=== PATIENT | male | born 1955 | race Caucasian/White ===

== ENCOUNTER 2018-04-07 19:55 | Inpatient (IN) | payer MEDICARE ==
[2018-04-07] MEDS ORDERED: Metoprolol Tartrate 5 MG/5 ML VIAL ONE (20:10)
[2018-04-07] MEDS ORDERED: Nitroglycerin 2% Ointment 1 INCH/1 GM Packet ONE (20:10)
[2018-04-07 21:27] LABS: Troponin I 2.863 ng/mL (< 0.028)
[2018-04-07] MEDS ORDERED: Enoxaparin Sodium 120 MG/0.8 ML SYRINGE SC SCH (23:00)
[2018-04-07] MEDS ORDERED: Nitroglycerin 0.4 MG TAB (25 Tab Bottle) SL PRN ×2 (23:34→23:36)
[2018-04-07] MEDS ORDERED: Acetaminophen 325 MG TAB PO PRN (23:37)
[2018-04-07] MEDS ORDERED: Ondansetron ODT 4 MG TAB PO PRN (23:37)
[2018-04-07] MEDS ORDERED: Atorvastatin Calcium 20 MG TAB PO SCH (23:45)
[2018-04-07] MEDS ORDERED: Metoprolol Tartrate 25 MG TAB PO SCH (23:45)
[2018-04-08 00:19] LABS: Troponin I 2.911 ng/mL (< 0.028)
[2018-04-08 05:11] LABS: #Basophils 0.1 thou/uL (0.0-0.2); #Eosinphils 0.2 thou/uL (0.0-0.7); #Lymphocytes 2.8 thou/uL (1.20-3.40); #Monocytes 1.1 thou/uL (0.11-0.59); #Neutrophils 8.5 thou/uL (1.40-6.50); %Basophils 0.4 % (0.0-1.0); %Eosinophils 1.8 % (0.0-10.0); %Monocytes 8.7 % (0.0-10.0); %Neutrophils 67.1 % (42.0-75.0); Hemoglobin 14.3 g/dL (14.0-18.0); Mean Corpuscular HGB CONC 33.5 g/dL (32.0-36.0); Mean Corpuscular Hemoglobin 29.7 pg (27.0-31.0); Mean Corpuscular Volume 88.4 fL (78.0-98.0); Mean Platelet Volume 9.3 fL (7.4-10.4); Platelet Count 220 thou/uL (130-400); RBC Distribution Width 12.5 % (11.5-14.5); Red Blood Cell (RBC) Count 4.84 mill/uL (4.70-6.10); White Blood Cell (WBC) Count 12.7 thou/uL (4.8-10.8)
[2018-04-08 05:27] LABS: Anion Gap 13 mmol/L (10-20); BUN (Urea Nitrogen) 10 mg/dL (8.4-25.7); Calc. Creatinine Clearance 122 mL/min (70-130); Calcium 9.1 mg/dL (7.8-10.44); Carbon Dioxide 26 mmol/L (23-31); Chloride 103 mmol/L (98-107); Estimated GFR-MDRD 71; Glucose 182 mg/dL (80-115); Potassium 3.7 mmol/L (3.5-5.1); Sodium 138 mmol/L (136-145)
[2018-04-08] MEDS ORDERED: Aspirin 325 MG TAB PO SCH (09:00)
[2018-04-08] MEDS ORDERED: Metoprolol Tartrate 25 MG TAB PO SCH (09:00)
[2018-04-08] MEDS ORDERED: Enoxaparin Sodium 120 MG/0.8 ML SYRINGE SC SCH (09:00)
[2018-04-08] MEDS: Aspirin 325 MG TAB PO SCH (09:39)
[2018-04-08] MEDS: Lisinopril 2.5 MG TAB PO SCH (09:40)
[2018-04-08] MEDS: Enoxaparin Sodium 40 MG/0.4 ML SYRINGE SC SCH (09:40)
[2018-04-08] MEDS: Clopidogrel Bisulfate 75 MG TAB PO SCH (09:40)
[2018-04-08] MEDS: Metoprolol Tartrate 25 MG TAB PO SCH ×2 (09:41→20:24)
[2018-04-08 10:21] LABS: Troponin I 1.881 ng/mL (< 0.028)
--- NOTE | 2018-04-08 13:44 | CON ---
DATE OF CONSULTATION: 04/08/2018 REASON FOR CONSULTATION: Chest pain, elevated troponin. HISTORY OF PRESENT ILLNESS: Mr. Escalera is a very pleasant 62-year-old gentleman who has been seen and evaluated by a tire finisher in [place]. He recently presented with chest pain. He states he had severe pain lasting for up to 15 minutes. He describes it as severe heartburn. It then slowly reso lved. This occurred yesterday. He has not had any recurrent episode. Given the intensity of the pa in, he proceeded to the emergency room. His troponin was elevated and was subsequently admitted. From a CV standpoint, he has a history of previous stent placement in 07/2008. He states he has had 4 total stents. PAST MEDICAL HISTORY: Hyperlipidemia, CVA/TIA, CAD. ALLERGIES: PENICILLIN. HOME MEDICATIONS: Plavix, aspirin, lisinopril, atorvastatin, amlodipine and Protonix. REVIEW OF SYSTEMS: A 10-point review of systems was reviewed and as above, otherwise negative. PHYSICAL EXAMINATION: GENERAL: Patient is a pleasant male who is in no acute distress. The patient appears his stated age . VITAL SIGNS: Blood pressure 139/88, pulse 73, temperature 97.5. NEUROLOGIC: The patient is alert and oriented times 3 with no focal neurologic deficits. HEENT: Sclerae without icterus. Mouth has moist mucous membranes with normal pallor. NECK: No JVD. Carotid upstroke brisk. No bruits bilaterally. LUNGS: Clear to auscultation with unlabored respirations. BACK: No scoliosis or kyphosis. CARDIAC: Regular rate and rhythm with normal S1 and S2. No S3 or S4 noted. No significant rubs, mu rmurs, thrills, or gallops noted throughout the precordium. PMI is not displaced. There is no rony ternal heave. ABDOMEN: Soft, nontender, nondistended. No peritoneal signs present. No hepatosplenomegaly. No ab normal striae. EXTREMITIES: 2+ femoral and 2+ dorsalis pedis pulses. No cyanosis, clubbing, or edema. SKIN: No gross abnormalities. PERTINENT LABS: Hemoglobin 14.3. Peak troponin 2.9, down to 1.8. IMAGING: EKG, normal sinus rhythm with Q-waves noted inferiorly. IMPRESSION: Unstable angina. RECOMMENDATIONS: Mr. Escalera's symptoms certainly suggest unstable angina. His troponin is elevate d. His EKG is nonspecific. At this point, I recommend coronary angiography plus PCI. I discussed t he procedure in full detail with Mr. Escalera. The risks included but are not limited to the followi ng: , stroke, OR, need for emergency surgery, loss of limb, bleeding, and infection, as well as a reaction to the dye causing kidney failure and needing long-term dialysis. I also discussed the r isks of PCI to include all of the above including coronary dissection and perforation in addition to acute stent thrombosis and restenosis. All questions about the procedure were answered. Given the a georgette, the patient agreed to proceed with coronary angiography and possible PCI. I also discussed karlie g-coated versus nondrug coated stent placement. There are no contraindications and we will proceed i f needed. Further recommendations pending the above.
--- NOTE | 2018-04-08 14:25 | PDOC.PN ---
- Subjective Encounter Start Date: 04/08/18 Encounter Start Time: 10:20 Pt seen for followup re: NSTEMI. Reports burning sensation in chest, now better. - Objective Resuscitation Status: Resuscitation Status FULL:Full Resuscitation Vital Signs & Weight: Vital Signs (12 hours) Temp Pulse Resp BP Pulse Ox 04/08/18 11:54 97.5 F L 73 17 139/88 96 04/08/18 09:40 85 04/08/18 09:36 97.7 F 85 14 169/94 H 99 04/08/18 04:00 97.7 F 81 18 131/81 97 Weight Weight 262 lb 6.4 oz I&O: 04/07/18 04/08/18 04/09/18 06:59 06:59 06:59 Intake Total 240 Output Total 375 Balance -135 Result Diagrams: 04/08/18 04:33 04/08/18 04:33 Phys Exam - Physical Examination Obese HEENT: moist MMs, sclera anicteric, oral pharynx no lesions, 2+ tonsils Neck: no nodes, no JVD, supple, full ROM Respiratory: no wheezing, no rales, no rhonchi, clear to auscultation bilateral Cardiovascular: RRR, no rub S1, s2 Gastrointestinal: soft, non-tender, no distention, positive bowel sounds Neurological: moves all 4 limbs Psychiatric: normal affect, A&O x 3 Dx/Plan (1) NSTEMI (non-ST elevated myocardial infarction) Code(s): I21.4 - NON-ST ELEVATION (NSTEMI) MYOCARDIAL INFARCTION Status: Acute Comment: monitor on telemetry, continue aspirin. (2) H/O: stroke Code(s): Z86.73 - PRSNL HX OF TIA (TIA), AND CEREB INFRC W/O RESID DEFICITS Status: Chronic Comment: stable (3) HTN (hypertension) Code(s): I10 - ESSENTIAL (PRIMARY) HYPERTENSION Status: Chronic Comment: controlled (4) Dyslipidemia Code(s): E78.5 - HYPERLIPIDEMIA, UNSPECIFIED Status: Chronic Comment: continue statin (5) Hyperglycemia Code(s): R73.9 - HYPERGLYCEMIA, UNSPECIFIED Status: Chronic Comment: check HbA1c. - Plan * . Review of Systems - Review of Systems Constitutional: negative: fever, chills, sweats, weakness, malaise Respiratory: negative: Cough, Shortness of Breath, SOB with Excertion, Pleuritic Pain, Wheezing Cardiovascular: chest pain. negative: palpitations, orthopnea, paroxysmal nocturnal dyspnea, edema, light headedness Gastrointestinal: negative: Nausea, Vomiting, Abdominal Pain, Diarrhea, Constipation, Melena, Hematochezia Genitourinary: negative: Dysuria, Frequency, Incontinence, Hematuria, Retention Skin: negative: Rash, Lesions, Dom, Bruising - Medications/Allergies Allergies/Adverse Reactions: Allergies Allergy/AdvReac Type Severity Reaction Status Date / Time Penicillins Allergy Verified 04/07/18 23:33 Medications: Current Medications Acetaminophen (Tylenol) 650 mg PO Q4H PRN PRN Reason: Headache/Fever or Pain Aspirin (Aspirin) 325 mg PO DAILY [facility] Last Admin: 04/08/18 09:39 Dose: 325 mg Atorvastatin Calcium (Lipitor) 20 mg PO HS [facility] Clopidogrel Bisulfate (Plavix) 75 mg PO DAILY [facility] Last Admin: 04/08/18 09:40 Dose: 75 mg Enoxaparin Sodium (Lovenox) 40 mg SC 0900 [facility] Last Admin: 04/08/18 09:40 Dose: 40 mg Lisinopril (Zestril) 2.5 mg PO DAILY [facility] Last Admin: 04/08/18 09:40 Dose: 2.5 mg Metoprolol Tartrate (Lopressor) 12.5 mg PO BID [facility] Last Admin: 04/08/18 09:41 Dose: 12.5 mg Nitroglycerin (Nitrostat) 0.4 mg SL Q5MIN PRN PRN Reason: Chest Pain Ondansetron HCl (Zofran Odt) 4 mg PO Q6H PRN PRN Reason: Nausea/Vomiting Pantoprazole Sodium (Protonix) 40 mg PO DAILY [facility] Last Admin: 04/08/18 09:42 Dose: 40 mg Pantoprazole Sodium (Protonix) 40 mg PO DAILY [facility] Last Admin: 04/08/18 09:44 Dose: Not Given Sodium Chloride (Flush - Normal Saline) 10 ml IVF PRN PRN PRN Reason: Saline Flush
[2018-04-08 14:46] LABS: Hemoglobin A1c 8.3 % (4.0-6.0)
[2018-04-08] MEDS: Atorvastatin Calcium 20 MG TAB PO SCH (20:24)
[2018-04-08] MEDS ORDERED: Simvastatin 40 MG TAB PO SCH (21:00)
[2018-04-09 04:58] LABS: #Basophils 0.1 thou/uL (0.0-0.2); #Eosinphils 0.2 thou/uL (0.0-0.7); #Lymphocytes 2.8 thou/uL (1.20-3.40); #Neutrophils 7.2 thou/uL (1.40-6.50); %Basophils 0.5 % (0.0-1.0); %Eosinophils 1.7 % (0.0-10.0); %Lymphocytes 25.1 % (21.0-51.0); %Monocytes 8.8 % (0.0-10.0); %Neutrophils 63.9 % (42.0-75.0); Hemoglobin 14.5 g/dL (14.0-18.0); Mean Corpuscular Hemoglobin 29.8 pg (27.0-31.0); Mean Corpuscular Volume 87.7 fL (78.0-98.0); Mean Platelet Volume 8.9 fL (7.4-10.4); Platelet Count 227 thou/uL (130-400); RBC Distribution Width 12.4 % (11.5-14.5); Red Blood Cell (RBC) Count 4.84 mill/uL (4.70-6.10); White Blood Cell (WBC) Count 11.3 thou/uL (4.8-10.8)
[2018-04-09 05:23] LABS: Anion Gap 13 mmol/L (10-20); BUN (Urea Nitrogen) 12 mg/dL (8.4-25.7); Calc. Creatinine Clearance 122 mL/min (70-130); Calcium 8.7 mg/dL (7.8-10.44); Carbon Dioxide 23 mmol/L (23-31); Chloride 104 mmol/L (98-107); Estimated GFR-MDRD 71; Glucose 185 mg/dL (80-115); Potassium 3.7 mmol/L (3.5-5.1); Sodium 136 mmol/L (136-145)
[2018-04-09] MEDS: Aspirin 325 MG TAB PO SCH (08:36)
[2018-04-09] MEDS: Clopidogrel Bisulfate 75 MG TAB PO SCH (08:36)
[2018-04-09] MEDS: Enoxaparin Sodium 40 MG/0.4 ML SYRINGE SC SCH (08:36)
[2018-04-09] MEDS: Lisinopril 2.5 MG TAB PO SCH (08:37)
[2018-04-09] MEDS: Metoprolol Tartrate 25 MG TAB PO SCH ×2 (08:37→20:15)
--- NOTE | 2018-04-09 09:51 | PDOC.PN ---
- Subjective Encounter Start Date: 04/09/18 Encounter Start Time: 07:20 Pt seen for followup re: NSTEMI. Denies chest pain, shortness of breath, fevers or chills. - Objective Resuscitation Status: Resuscitation Status FULL:Full Resuscitation MAR Reviewed: Yes Vital Signs & Weight: Vital Signs (12 hours) Temp Pulse Resp BP Pulse Ox 04/09/18 08:32 98.4 F 85 16 136/83 96 04/09/18 04:00 98.5 F 73 18 119/70 94 L Weight Weight 260 lb 12.8 oz I&O: 04/08/18 04/09/18 04/10/18 06:59 06:59 06:59 Intake Total 240 1440 Output Total 375 1150 Balance -135 290 Result Diagrams: 04/09/18 04:27 04/09/18 04:27 EKG Reviewed by me: Yes (Tele: NSR) Phys Exam - Physical Examination Obese HEENT: moist MMs, sclera anicteric, oral pharynx no lesions, 2+ tonsils Neck: no nodes, no JVD, supple, full ROM Respiratory: no wheezing, no rales, no rhonchi, clear to auscultation bilateral Cardiovascular: RRR, no rub S1, s2 Gastrointestinal: soft, non-tender, no distention, positive bowel sounds Musculoskeletal: no edema Neurological: moves all 4 limbs Lymphatic: no nodes Psychiatric: normal affect Dx/Plan (1) NSTEMI (non-ST elevated myocardial infarction) Code(s): I21.4 - NON-ST ELEVATION (NSTEMI) MYOCARDIAL INFARCTION Status: Acute Comment: for cath tomorrow, continue aspirin and Plavix (2) H/O: stroke Code(s): Z86.73 - PRSNL HX OF TIA (TIA), AND CEREB INFRC W/O RESID DEFICITS Status: Chronic Comment: stable (3) HTN (hypertension) Code(s): I10 - ESSENTIAL (PRIMARY) HYPERTENSION Status: Chronic Comment: controlled and at goal (4) Dyslipidemia Code(s): E78.5 - HYPERLIPIDEMIA, UNSPECIFIED Status: Chronic Comment: on statin (5) Hyperglycemia Code(s): R73.9 - HYPERGLYCEMIA, UNSPECIFIED Status: Chronic Comment: HbA1c 8.3, start accuchecks and insulin sliding scale while in hospital - Plan * . Review of Systems - Review of Systems Constitutional: negative: fever, chills, sweats, weakness, malaise Respiratory: negative: Cough, Shortness of Breath, SOB with Excertion, Pleuritic Pain, Wheezing Cardiovascular: negative: chest pain, palpitations, orthopnea, paroxysmal nocturnal dyspnea, edema, light headedness Gastrointestinal: negative: Nausea, Vomiting, Abdominal Pain, Diarrhea, Constipation, Melena, Hematochezia Genitourinary: negative: Dysuria, Frequency, Incontinence, Hematuria, Retention Neurological: negative: Weakness, Numbness, Incoordination, Change in Speech, Confusion, Seizures - Medications/Allergies Allergies/Adverse Reactions: Allergies Allergy/AdvReac Type Severity Reaction Status Date / Time Penicillins Allergy Verified 04/07/18 23:33 Medications: Current Medications Acetaminophen (Tylenol) 650 mg PO Q4H PRN PRN Reason: Headache/Fever or Pain Aspirin (Aspirin) 325 mg PO DAILY [facility] Last Admin: 04/09/18 08:36 Dose: 325 mg Atorvastatin Calcium (Lipitor) 20 mg PO HS [facility] Last Admin: 04/08/18 20:24 Dose: 20 mg Clopidogrel Bisulfate (Plavix) 75 mg PO DAILY [facility] Last Admin: 04/09/18 08:36 Dose: 75 mg Enoxaparin Sodium (Lovenox) 40 mg SC 0900 [facility] Last Admin: 04/09/18 08:36 Dose: 40 mg Lisinopril (Zestril) 2.5 mg PO DAILY [facility] Last Admin: 04/09/18 08:37 Dose: 2.5 mg Metoprolol Tartrate (Lopressor) 12.5 mg PO BID [facility] Last Admin: 04/09/18 08:37 Dose: 12.5 mg Nitroglycerin (Nitrostat) 0.4 mg SL Q5MIN PRN PRN Reason: Chest Pain Ondansetron HCl (Zofran Odt) 4 mg PO Q6H PRN PRN Reason: Nausea/Vomiting Pantoprazole Sodium (Protonix) 40 mg PO DAILY [facility] Last Admin: 04/09/18 08:38 Dose: 40 mg Pantoprazole Sodium (Protonix) 40 mg PO DAILY [facility] Last Admin: 04/09/18 08:38 Dose: Not Given Sodium Chloride (Flush - Normal Saline) 10 ml IVF PRN PRN PRN Reason: Saline Flush Last Admin: 04/09/18 08:38 Dose: 10 ml
[2018-04-09] MEDS ORDERED: HumaLOG 300 UNITS/3 ML VIAL SC PRN (09:53)
[2018-04-09] MEDS ORDERED: Dextrose 5% in Water 1,000 ML IV PRN (09:53)
[2018-04-09] MEDS ORDERED: Dextrose 50% Abboject 50 ML SYRINGE SLOW IVP PRN (09:53)
[2018-04-09] MEDS ORDERED: Communication Order-Pharmacy FS SCH (10:45)
--- NOTE | 2018-04-09 12:18 | PDOC.CTH ---
Cardiology Progress Note - Subjective No complaints. No CP/SOB overnight or with ambulation. - Objective Vital Signs Temp Pulse Resp BP Pulse Ox 04/09/18 11:16 97.5 F L 71 14 130/85 95 04/09/18 08:32 97.5 F L 71 14 136/83 96 04/09/18 04:00 98.5 F 73 18 119/70 94 L Weight 260 lb 12.8 oz 04/08/18 04/09/18 04/10/18 06:59 06:59 06:59 Intake Total 240 1440 Output Total 375 1150 Balance -135 290 - Physical Examination General/Neuro: alert & oriented x3 Neck: no JVD present Lungs: CTA Heart: RRR Abdomen: NT/ND Extremities: other: (no edema) - Telemetry Telemetry Rhythm: SR - Labs Result Diagrams: 04/09/18 04:27 04/09/18 04:27 Troponin/CKMB Troponin I 1.881 ng/mL (< 0.028) H* 04/08/18 09:24 - Assessment/Plan 1. NSTEMI 2. HTN 3. HLD 4. Uncontrolled DM-II 5. History of CVA Plan for cath in AM. Answered questions regarding procedure. Already consented by Dr. Lino
--- NOTE | 2018-04-09 19:03 | HP ---
PRIMARY CARE DOCTOR: [facility] Call CODE STATUS: FULL CODE. TIME OF EVALUATION: 9:40 p.m. CHIEF COMPLAINT: Chest pain. HISTORY OF PRESENT ILLNESS: This is a 62-year-old male patient with past medical history of stroke, ulnar neuropathy, NM in 2007, hypertension who came to the hospital after having chest pain, it was i n the middle of the chest, he described it as a heartburn stomach, he reported as severe, there are no clear triggers, no alleviating factors. Chest pain is being going on since yesterday, the pa henry the troponin was 3.2. He presented almost 24 hours after this incident, and reported rec ent transfer to our hospital. REVIEW OF SYSTEMS: Constitutional: No fever, no chills, or generalized weakness. Respiratory: No cough, sputum production, or shortness of breath. Cardiovascular: No chest pain, no shortness of br eath. Gastrointestinal: No nausea, vomiting, diarrhea, or abdominal pain. 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 Genitourinary: No burning with urination. Extremities: No leg swell ing. All other systems were reviewed and negative except for the findings mentioned above. PAST MEDICAL HISTORY: As mentioned in the HPI. PAST SURGICAL HISTORY: The patient has history of stent x4 and knee surgery. PSYCHIATRIC HISTORY: No previous psychiatric history. SOCIAL HISTORY: Former tobacco smoker, smoked cigarettes, quit smoking less than 30 years ago. ALLERGIES: PENICILLIN. REPORTED MEDICATIONS: Lisinopril 10 mg daily, metoprolol 25 mg unknown dose, aspirin 81 daily, clopi dogrel 75 mg daily, atorvastatin 10 mg daily. PHYSICAL EXAMINATION: VITAL SIGNS: On presentation, blood pressure 153/102 with heart rate 100, respiratory rate was 18, p ain was 0/10, O2 saturation of 96 on 2 L oxygen. GENERAL APPEARANCE: The patient is alert and oriented, in no acute distress. HEAD AND EYES: Normal conjunctivae. Moist oral mucosa. Anicteric. NECK: No JVD. RESPIRATORY: Bilateral air entry. No rales, no wheezing. Symmetric expansion. CARDIOVASCULAR: Normal rate, regular rhythm. No murmurs, no gallop. No edema. ABDOMEN: Soft. The patient is obese. Normal bowel sounds. MUSCULOSKELETAL: Baseline range of motion and strength. No tenderness. SKIN: Warm and intact. No pallor, no rash, no redness. Peripheral pulses are present. Capillary r efill seems to be intact. NEUROLOGIC: Baseline sensory. No evidence of any new focal weakness. Baseline speech. Cranial ner ve seems to be intact. PSYCHIATRIC: Good mood. No anxiety, oriented, optimal judgment. IMAGING: EKG was reviewed. The patient has sinus rhythm with occasional PVCs, ventricular rate 88, NE 152, QRS 92, QT corrected 447. No acute ischemia was seen in the EKG. LABORATORY DATA: Reviewed. The patient had initial troponin of 2.8, second troponin 2.9. Rest of l abs are pending. ASSESSMENT AND PLAN: The patient will be placed in the hospital for the following medical problems: 1. Non-ST segment elevation myocardial infarction. The patient has elevation in troponin of around 3, likely that was the reason for the chest pain 24 hours ago when the patient was at home. We start ed the patient on aspirin and Lovenox, GARCIA inhibitors, beta blockers, nitroglycerin, simvastatin, ___ __ Plavix. Cardiology consulted for further management in a.m. 2. Morbid obesity. The patient advised to lose weight. 3. Uncontrolled hypertension with systolic blood pressure 153, diastolic 102, reconciled home medica tions, adjust treatment as needed. 4. Medical noncompliance. The patient has been advised to be compliant, he reported having some fin ancial issues. He will be switching back to . 5. Deep venous thrombosis prophylaxis. The patient is on Lovenox.
[2018-04-09] MEDS: Atorvastatin Calcium 20 MG TAB PO SCH (20:15)
[2018-04-10 05:03] LABS: #Basophils 0.1 thou/uL (0.0-0.2); #Eosinphils 0.2 thou/uL (0.0-0.7); #Monocytes 0.9 thou/uL (0.11-0.59); #Neutrophils 6.1 thou/uL (1.40-6.50); %Basophils 0.6 % (0.0-1.0); %Eosinophils 2.2 % (0.0-10.0); %Lymphocytes 29.2 % (21.0-51.0); %Monocytes 8.4 % (0.0-10.0); %Neutrophils 59.7 % (42.0-75.0); Mean Corpuscular HGB CONC 34.6 g/dL (32.0-36.0); Mean Corpuscular Hemoglobin 30.3 pg (27.0-31.0); Mean Corpuscular Volume 87.7 fL (78.0-98.0); Mean Platelet Volume 9.5 fL (7.4-10.4); Platelet Count 217 thou/uL (130-400); RBC Distribution Width 12.4 % (11.5-14.5); Red Blood Cell (RBC) Count 4.94 mill/uL (4.70-6.10); White Blood Cell (WBC) Count 10.1 thou/uL (4.8-10.8)
[2018-04-10 05:25] LABS: Anion Gap 13 mmol/L (10-20); BUN (Urea Nitrogen) 12 mg/dL (8.4-25.7); Calc. Creatinine Clearance 118 mL/min (70-130); Calcium 9.2 mg/dL (7.8-10.44); Carbon Dioxide 25 mmol/L (23-31); Chloride 104 mmol/L (98-107); Estimated GFR-MDRD 69; Glucose 172 mg/dL (80-115); Potassium 3.8 mmol/L (3.5-5.1); Sodium 138 mmol/L (136-145)
[2018-04-10] MEDS ORDERED: Sodium Chloride 0.9% 1,000 ML IV SCH ×2 (06:00→10:15)
[2018-04-10] MEDS ORDERED: Lidocaine 1% (PF) 30 ML VIAL ONE (08:10)
[2018-04-10] MEDS: Metoprolol Tartrate 25 MG TAB PO SCH ×2 (08:30→20:25)
[2018-04-10] MEDS: Lisinopril 2.5 MG TAB PO SCH (08:30)
[2018-04-10] MEDS ORDERED: Iopamidol 370 76% 100 ML VIAL ONE (09:14)
[2018-04-10] MEDS ORDERED: Midazolam HCl 2 mg/2 ml Vial ONE (09:46)
[2018-04-10] MEDS ORDERED: Fentanyl 100 MCG/2 ML VIAL ONE (10:04)
[2018-04-10] MEDS ORDERED: traMADol HCl 50 MG TAB PO PRN (10:05)
[2018-04-10] MEDS ORDERED: Acetaminophen/Codeine 30-300mg Tablet PO PRN ×2 (10:05)
[2018-04-10] MEDS ORDERED: Nitroglycerin 0.4 MG TAB (25 Tab Bottle) SL PRN (10:05)
[2018-04-10] MEDS ORDERED: Sodium Chloride 0.9% 200 ML IV PRN (10:15)
[2018-04-10] MEDS: Aspirin 325 MG TAB PO SCH (10:41)
[2018-04-10] MEDS ORDERED: Communication Order-Pharmacy FS SCH (11:47)
--- NOTE | 2018-04-10 12:47 | CON ---
DATE OF CONSULTATION: 04/10/2018 REQUESTING PHYSICIAN: Gaston Calderon M.D. CHIEF COMPLAINT: Heartburn. HISTORY OF PRESENT ILLNESS: The patient is a 62-year-old diabetic man who about 10 years ago underwe nt coronary stenting. From a cardiac standpoint, he had done well until the last week or two when he began developing what he thought was simply heartburn. It was relieved with antacids and warm Coca Cola, but he presented to the hospital when he had a much more severe episode. He did not have any o bviously acute EKG changes, but his initial troponin was elevated and it kezia and fell consistent wit h a non-ST elevation myocardial infarction. He has not had any recurrent such discomfort since his a dmission. Cardiac catheterization this morning demonstrates severe three-vessel coronary disease wit h preserved left ventricular systolic function. PAST MEDICAL HISTORY: Significant for his coronary disease and about 5 years ago, he had a cerebrova scular accident that he said was manifesting his left body weakness and dysarthria and he says that sofia dyson still has some residual mild left-sided weakness and some mild dysarthria is still evident. MEDICATIONS: His nominal home medications are aspirin, Plavix, lisinopril, atorvastatin, Norvasc and Protonix, but he ran out of his medications about 2 or 3 weeks ago. ALLERGIES: PENICILLIN, which causes large welts. FAMILY HISTORY: Significant for coronary disease in his mother who underwent coronary bypass surgery about 2 years ago and a younger brother who has undergone coronary bypass surgery. SOCIAL HISTORY: The patient has a distant history of smoking. REVIEW OF SYSTEMS: Negative for any recurrent eye, speech, facial or extremity symptoms consistent w ith transient ischemic attacks. Negative for any shortness of breath. Negative for any recent illne sses. He does state that he has had problems with back pain ever since he fell down when he had a st roke 5 years ago. PHYSICAL EXAMINATION: GENERAL: He is 6 feet 1 inch, weighs 260-3/4 pounds. VITAL SIGNS: His temperature is 97.4 with a T-max since admission of 98.6, his heart rates have been mostly in the 70-85 range and blood pressure in the 100-170/60-95 range, although his diastolic was around 100 on presentation in the emergency room. Currently, his heart rate is in the upper 70s and blood pressure 130/89. SKIN: He has no obvious xanthelasma. NECK: No JVD. He has a right carotid bruit. LUNGS: His chest is clear to auscultation. CARDIOVASCULAR: He has a regular rate and rhythm. ABDOMEN: Soft and nontender, without any obvious masses, organomegaly or bruits. EXTREMITIES: He has easily palpable radial, left femoral and left popliteal pulses. He has no bruit associated with his left femoral pulse. I did not examine the right femoral pulse due to his cathet erization this morning. Angiography closure of the cath site shows an intact distal external iliac, common femoral and common femoral bifurcation. Another exam described good dorsalis pedis pulses. C urrently, his feet are fairly cool with faintly palpable dorsalis pedis pulses. I was not able to ap preciate posterior tibials on either side or right popliteal pulse. Both feet are pink. NEUROLOGIC: Grossly nonfocal, although he states that he has left body weakness as a residual from h is stroke. He has no clubbing, cyanosis or edema. LABORATORY DATA: White count 12.7, hemoglobin 14.3, hematocrit 42.8, platelets 220,000. He had norm al electrolytes. Glucose was 182 and his Accu-Cheks since admission have generally been in the mid t o high 100s. BUN was 10, creatinine 0.6, calcium 9.1. Hemoglobin A1c was 8.3. His troponin on pres entation in the evening of the was 2.863, close to midnight it was 2.911 and then about 9:30 in the morning of the it was 1.881. This morning, his blood sugar was 172, BUN 12, creatinine 1.09 . I am not able to open the disk that is labeled as being the copy of a chest x-ray from the . I find no x-ray in our system here. His EKG shows some nonspecific ST-T wave changes with inferior Q 's. His cardiac catheterization shows a right dominant system with an occluded right coronary that a ppears to have been previously stented from its mid distal portion and a long area of stenting in the mid LAD. He has diffuse disease in his very proximal LAD with maximum stenosis about 50%-60% and th en just proximal to the stent a little beyond the first septal steam fitter supervisor maintenance is a very high-grade lesion that is probably on the order of about 90%. He has 2 tiny OMs that come off the proximal circumflex and it terminates with the OM3 being the only good sized vessel. That obtuse marginal itself appear s to be free of disease, but there is a long area of the circumflex proper that is diffusely diseased with an area of maximum stenosis. This is probably on the order of 70%-80%. His right coronary pro per is occluded. It is not clear if his posterolateral and posterior descending branches communicate . On some, they appear to not and others, there appears to be competitive flow in the proximal porti on of the posterolateral branch. Both can be seen filling left to right. LVEF is probably around 50 % or 60%. Aortic pressure is 150/83, LV was 177/12 with an EDP of 31. IMPRESSION AND RECOMMENDATIONS: Severe three-vessel coronary disease in a diabetic who has had a non -ST elevation myocardial infarction who has had previous multivessel stenting and now has disease maxwell t includes proximal LAD disease. He still has good preserved left ventricular function. His risk fa ctors are going to be elevated because of his diabetes and previous cerebrovascular disease, but the best long-term option I still think would be with surgical revascularization. I am going to stop his Plavix, check a carotid ultrasound and tentatively plan on coronary artery bypass grafting the day a fter tomorrow.
--- NOTE | 2018-04-10 13:28 | RAD ---
CHEST 2 VIEWS: Date: 04/10/18 HISTORY: Pain. COMPARISON: None. FINDINGS: Normal cardiac silhouette. Pulmonary vessels and hilum are normal. Costophrenic angles are clear. No consolidation or mass. No pneumothorax or osseous abnormalities. IMPRESSION: No acute cardiopulmonary process. POS: ROBERTA
--- NOTE | 2018-04-10 13:58 | ULT ---
CAROTID DOPPLER ULTRASOUND EVALUATION: History: Right carotid bruit. Prior to coronary artery bypass graft. Technique: Multiple longitudinal and transverse images of the carotid arteries obtained using a multi hertz linear array transducer. FINDINGS: Real-time, color flow, and spectral waveform doppler analysis demonstrates the right and left common carotid arteries to be patent. There is calcified and noncalcified plaques in the origin of the right and left internal carotid arteries. This results in approximately 50% bilateral ICA stenosis. The fl ow velocity in the proximal right ICA measure 157/58 cm/sec and in the left ICA measuring 189/81 cm/s ec. Correlation with CT angiography may be of use. Antegrade flow is seen in both vertebral arteries. IMPRESSION: 1. Moderate degree of approximately 60% bilateral ICA stenosis. Correlation with CT angiography recom mended. POS: ALAN
--- NOTE | 2018-04-10 14:54 | PDOC.PN ---
- Subjective Encounter Start Date: 04/10/18 Encounter Start Time: 14:52 Pt seen for followup re: NSTEMI. Denies chest pain, shortness of breath, fevers or chills. - Objective Resuscitation Status: Resuscitation Status FULL:Full Resuscitation MAR Reviewed: Yes Vital Signs & Weight: Vital Signs (12 hours) Temp Pulse Resp BP BP Pulse Ox 04/10/18 12:00 72 18 168/90 H 95 04/10/18 08:30 78 130/89 04/10/18 07:35 97.4 F L 78 16 130/89 95 04/10/18 04:00 97.8 F 75 13 154/95 H 96 Weight Weight 260 lb 12.8 oz I&O: 04/09/18 04/10/18 04/11/18 06:59 06:59 06:59 Intake Total 1440 Output Total 1150 Balance 290 Result Diagrams: 04/10/18 03:59 04/10/18 03:59 Additional Labs: Accuchecks 04/10/18 04/10/18 04/09/18 10:56 05:53 20:49 POC Glucose 170 H 150 H 171 H 04/09/18 16:59 POC Glucose 137 H EKG Reviewed by me: Yes (Tele: NSR) Phys Exam - Physical Examination Obese HEENT: moist MMs, sclera anicteric, oral pharynx no lesions, 2+ tonsils Neck: no nodes, no JVD, supple, full ROM Respiratory: no wheezing, no rales, no rhonchi, clear to auscultation bilateral Cardiovascular: RRR, no rub S1, S2 Gastrointestinal: soft, non-tender, no distention, positive bowel sounds Neurological: moves all 4 limbs Psychiatric: normal affect, A&O x 3 Dx/Plan (1) NSTEMI (non-ST elevated myocardial infarction) Code(s): I21.4 - NON-ST ELEVATION (NSTEMI) MYOCARDIAL INFARCTION Status: Acute Comment: 3-vessel CAD on cath, pt to go for CABG on (04/12), Plavis on hold (2) DM2 (diabetes mellitus, type 2) Status: Chronic Comment: HbA1c 8.3, started accuchecks and insulin sliding scale while in hospital. (3) H/O: stroke Code(s): Z86.73 - PRSNL HX OF TIA (TIA), AND CEREB INFRC W/O RESID DEFICITS Status: Chronic Comment: stable (4) HTN (hypertension) Code(s): I10 - ESSENTIAL (PRIMARY) HYPERTENSION Status: Chronic Comment: BP trending up, will add PRN IV hydralazine (5) Dyslipidemia Code(s): E78.5 - HYPERLIPIDEMIA, UNSPECIFIED Status: Chronic Comment: continue statin - Plan * . Review of Systems - Review of Systems Constitutional: negative: fever, chills, sweats, weakness, malaise, other Respiratory: negative: Cough, Dry, Shortness of Breath, SOB with Excertion, Pleuritic Pain, Wheezing Cardiovascular: negative: chest pain, palpitations, orthopnea, paroxysmal nocturnal dyspnea, edema, light headedness Gastrointestinal: negative: Nausea, Vomiting, Abdominal Pain, Diarrhea, Constipation, Melena, Hematochezia Genitourinary: negative: Dysuria, Frequency, Incontinence, Hematuria, Retention Skin: negative: Rash, Lesions, Dom, Bruising - Medications/Allergies Allergies/Adverse Reactions: Allergies Allergy/AdvReac Type Severity Reaction Status Date / Time Penicillins Allergy Verified 04/07/18 23:33 Medications: Current Medications Acetaminophen (Tylenol) 650 mg PO Q4H PRN PRN Reason: Headache/Fever Stop: 04/12/18 08:59 Acetaminophen/Codeine Phosphate (Tylenol #3) 1 tab PO Q4H PRN PRN Reason: Mild Pain (1-3) Stop: 04/12/18 08:59 Acetaminophen/Codeine Phosphate (Tylenol #3) 2 tab PO Q4H PRN PRN Reason: Moderate Pain (4-6) Stop: 04/12/18 08:59 Aspirin (Aspirin) 325 mg PO DAILY [facility] Stop: 04/12/18 08:59 Last Admin: 04/10/18 10:41 Dose: 325 mg Atorvastatin Calcium (Lipitor) 20 mg PO HS [facility] Stop: 04/12/18 08:59 Last Admin: 04/09/18 20:15 Dose: 20 mg Dextrose/Water (Dextrose 50%) 25 gm SLOW IVP PRN PRN PRN Reason: Hypoglycemia Stop: 04/12/18 08:59 Glucagon (Glucagon) 1 mg IM PRN PRN PRN Reason: Hypoglycemia Stop: 04/12/18 08:59 Dextrose/Water (D5w) 1,000 mls @ 0 mls/hr IV .Q0M PRN PRN Reason: Hypoglycemia Stop: 04/12/18 08:59 Sodium Chloride (Normal Saline 0.9%) 200 mls @ 0 mls/hr IV ONE PRN PRN Reason: Bolus PRN SBP < 90 mm Hg Stop: 04/12/18 08:59 Vancomycin HCl 1 gm/ Device 200 mls @ 200 mls/hr IVPB ONE [facility] Stop: 04/12/18 23:59 Lisinopril (Zestril) 2.5 mg PO DAILY [facility] Last Admin: 04/10/18 08:30 Dose: 2.5 mg Metoprolol Tartrate (Lopressor) 12.5 mg PO BID [facility] Last Admin: 04/10/18 08:30 Dose: 12.5 mg Miscellaneous Information (Communication Order-Pharmacy) 1 each FS ONE [facility] Stop: 04/12/18 08:59 Nitroglycerin (Nitrostat) 0.4 mg SL Q5MIN PRN PRN Reason: Chest Pain Stop: 04/12/18 08:59 Nitroglycerin (Nitrostat) 0.4 mg SL Q5MIN PRN PRN Reason: Chest Pain Stop: 04/12/18 08:59 Ondansetron HCl (Zofran Odt) 4 mg PO Q6H PRN PRN Reason: Nausea/Vomiting Stop: 04/12/18 08:59 Pantoprazole Sodium (Protonix) 40 mg PO DAILY [facility] Stop: 04/12/18 08:59 Last Admin: 04/10/18 08:30 Dose: 40 mg Sodium Chloride (Flush - Normal Saline) 10 ml IVF PRN PRN PRN Reason: Saline Flush Stop: 04/12/18 08:59 Last Admin: 04/09/18 08:38 Dose: 10 ml Tramadol HCl (Ultram) 50 mg PO Q6H PRN PRN Reason: Moderate Pain (4-6) Stop: 04/12/18 08:59
[2018-04-10] MEDS ORDERED: hydrALAZINE 20 MG/ML VIAL SLOW IVP PRN (14:56)
--- NOTE | 2018-04-10 16:42 | CT ---
CT CHEST WITHOUT CONTRAST: Date: 04/10/18 INDICATION: Possible retrocardiac lung mass. The etiology of questioned lung mass is not specified. Chest x-ray from 04/10/18 is unremarkable. FINDINGS: Lung espitia are well aerated and are clear. No evidence of infiltrate, effusion, or mass lesion. Smal l sliding diaphragmatic hernia. No evidence of mediastinal adenopathy. Images through the upper abdomen reveal numerous peripherally calcified gallstones within the gallbla dder. Visualized liver, spleen, and pancreas appear unremarkable. There is suggestion of radiopaque c ontrast in the visualized collecting structures of both kidneys. Osseous structures unremarkable. IMPRESSION: 1. No acute lung process. 2. Cholelithiasis. 3. Suggestion of radiopaque contrast in the renal collecting structures which were not completely im aged. Recommend correlation regarding recent contrast administration. 4. Small sliding diaphragmatic hernia noted. POS: ROBERTA
[2018-04-10] MEDS: Atorvastatin Calcium 20 MG TAB PO SCH (20:25)
[2018-04-11 04:45] LABS: PTT 27.3 SEC (22.9-36.1); Prothrombin Time 13.2 SEC (12.0-14.7)
[2018-04-11 04:49] LABS: Anion Gap 11 mmol/L (10-20); BUN (Urea Nitrogen) 11 mg/dL (8.4-25.7); Calc. Creatinine Clearance 127 mL/min (70-130); Calcium 8.9 mg/dL (7.8-10.44); Carbon Dioxide 25 mmol/L (23-31); Chloride 105 mmol/L (98-107); Estimated GFR-MDRD 75; Glucose 175 mg/dL (80-115); Potassium 3.8 mmol/L (3.5-5.1); Sodium 137 mmol/L (136-145)
--- NOTE | 2018-04-11 06:37 | PDOC.CTH ---
Cardiology Progress Note - Subjective No complaints - Objective Vital Signs Temp Pulse Resp BP Pulse Ox 04/11/18 04:00 97.6 F 68 16 117/75 96 04/10/18 19:15 98.1 F 83 18 153/96 H 96 Weight 260 lb 12.8 oz 04/09/18 04/10/18 04/11/18 06:59 06:59 06:59 Intake Total 1440 1330 Output Total 1150 550 Balance 290 780 - Physical Examination General/Neuro: alert & oriented x3, NAD Neck: carotid US brisk, no JVD present Lungs: CTA, unlabored respirations Heart: RRR Abdomen: no HSM, NT/ND, soft Extremities: + femoral B - Labs Result Diagrams: 04/10/18 03:59 04/11/18 03:51 Troponin/CKMB Troponin I 1.881 ng/mL (< 0.028) H* 04/08/18 09:24 - Assessment/Plan Severe CAD S/p stent PLan on cabg tomorrow on statin BB Hold plavix and continue ASA
[2018-04-11] MEDS: Metoprolol Tartrate 25 MG TAB PO SCH ×2 (09:31→20:41)
[2018-04-11] MEDS: Aspirin 325 MG TAB PO SCH (09:32)
[2018-04-11] MEDS: Lisinopril 2.5 MG TAB PO SCH (09:32)
--- NOTE | 2018-04-11 11:29 | CT ---
CT ARTERIOGRAM NECK WITH IV CONTRAST AND 3D MIP IMAGING: History: Vascular disease. TIA. Stenosis based on sonogram. FINDINGS: There is bovine origin at the great vessels at the aortic arch. Good flow into each carotid and verte bral system. At the right carotid bifurcation, there is calcification and noncalcified plaque. Focal area of high grade stenosis within the proximal ICA is estimated at 90%. Immediately distal to this is a secondary of approximately 80% stenosis. Good flow into the more distal ICA. ECA is patent. On the left, there is calcified and prominent noncalcified plaque with a short segment focus of high grade stenosis estimated at 80%. Good flow into the more distal ICA and within the ECA. IMPRESSION: Atherosclerosis with severe bilateral proximal ICA stenosis as detailed above. POS: ALAN
[2018-04-11] MEDS ORDERED: HumaLOG 300 UNITS/3 ML VIAL SC PRN ×2 (11:56)
--- NOTE | 2018-04-11 15:55 | PDOC.PN ---
- Subjective Encounter Start Date: 04/11/18 Encounter Start Time: 10:00 Patient is seen today, alert and oriented. No other concerns noted. Will continue to Monitor. Planned CABG tomorrow. - Objective Resuscitation Status: Resuscitation Status FULL:Full Resuscitation MAR Reviewed: Yes Vital Signs & Weight: Vital Signs (12 hours) Temp Pulse Resp BP BP Pulse Ox 04/11/18 11:25 61 18 114/70 96 04/11/18 09:32 77 131/83 04/11/18 07:15 98.2 F 61 18 131/83 97 04/11/18 04:00 97.6 F 68 16 117/75 96 Weight Weight 260 lb 12.8 oz I&O: 04/10/18 04/11/18 04/12/18 06:59 06:59 06:59 Intake Total 1330 Output Total 550 Balance 780 Result Diagrams: 04/10/18 03:59 04/11/18 03:51 Additional Labs: Accuchecks 04/11/18 04/11/18 04/10/18 11:07 05:10 21:00 POC Glucose 173 H 162 H 165 H Radiology Reviewed by me: Yes EKG Reviewed by me: Yes Phys Exam - Physical Examination HEENT: PERRLA, moist MMs Neck: no nodes, no JVD Respiratory: no wheezing, no rales Cardiovascular: RRR, no significant murmur Gastrointestinal: soft, non-tender Musculoskeletal: no edema, pulses present Neurological: non-focal, normal sensation Dx/Plan (1) NSTEMI (non-ST elevated myocardial infarction) Code(s): I21.4 - NON-ST ELEVATION (NSTEMI) MYOCARDIAL INFARCTION Status: Acute Comment: 3-vessel CAD on cath, pt to go for CABG on (04/12), Plavis on hold. CT chest today showed No Mass retrocardiac. (2) DM2 (diabetes mellitus, type 2) Status: Chronic Comment: HbA1c 8.3, started accuchecks and insulin sliding scale while in hospital. (3) Dyslipidemia Code(s): E78.5 - HYPERLIPIDEMIA, UNSPECIFIED Status: Chronic Comment: continue statin (4) H/O: stroke Code(s): Z86.73 - PRSNL HX OF TIA (TIA), AND CEREB INFRC W/O RESID DEFICITS Status: Chronic Comment: stable (5) HTN (hypertension) Code(s): I10 - ESSENTIAL (PRIMARY) HYPERTENSION Status: Chronic Comment: BP trending up, will add PRN IV hydralazine (6) Hyperglycemia Code(s): R73.9 - HYPERGLYCEMIA, UNSPECIFIED Status: Chronic Comment: zarina gill SSI. - Plan cont current plan of care, PT/OT, social worker aide, respiratory therapy, incentive spirometry, DVT proph w/lovenox * . Review of Systems - Review of Systems Constitutional: negative: fever, chills, sweats, weakness, malaise, other Eyes: negative: Pain, Vision Change, Conjunctivae Inflammation, Eyelid Inflammation, Redness, Other ENT: negative: Ear Pain, Ear Discharge, Nose Pain, Nose Discharge, Nose Congestion, Mouth Pain, Mouth Swelling, Throat Pain, Throat Swelling, Other Respiratory: negative: Cough, Dry, Shortness of Breath, Hemoptysis, SOB with Excertion, Pleuritic Pain, Sputum, Wheezing Cardiovascular: negative: chest pain, palpitations, orthopnea, paroxysmal nocturnal dyspnea, edema, light headedness, other Gastrointestinal: negative: Nausea, Vomiting, Abdominal Pain, Diarrhea, Constipation, Melena, Hematochezia, Other Musculoskeletal: negative: Neck Pain, Shoulder Pain, Arm Pain, Back Pain, Hand Pain, Leg Pain, Foot Pain, Other - Medications/Allergies Allergies/Adverse Reactions: Allergies Allergy/AdvReac Type Severity Reaction Status Date / Time Penicillins Allergy Verified 04/07/18 23:33 Medications: Current Medications Acetaminophen (Tylenol) 650 mg PO Q4H PRN PRN Reason: Headache/Fever Stop: 04/12/18 08:59 Acetaminophen/Codeine Phosphate (Tylenol #3) 1 tab PO Q4H PRN PRN Reason: Mild Pain (1-3) Stop: 04/12/18 08:59 Acetaminophen/Codeine Phosphate (Tylenol #3) 2 tab PO Q4H PRN PRN Reason: Moderate Pain (4-6) Stop: 04/12/18 08:59 Aspirin (Aspirin) 325 mg PO DAILY [facility] Stop: 04/12/18 08:59 Last Admin: 04/11/18 09:32 Dose: 325 mg Atorvastatin Calcium (Lipitor) 20 mg PO HS [facility] Stop: 04/12/18 08:59 Last Admin: 04/10/18 20:25 Dose: 20 mg Dextrose/Water (Dextrose 50%) 25 gm SLOW IVP PRN PRN PRN Reason: Hypoglycemia Stop: 04/12/18 08:59 Glucagon (Glucagon) 1 mg IM PRN PRN PRN Reason: Hypoglycemia Stop: 04/12/18 08:59 Hydralazine HCl (Apresoline) 10 mg SLOW IVP Q6H PRN PRN Reason: SBP Greater Than 170 Dextrose/Water (D5w) 1,000 mls @ 0 mls/hr IV .Q0M PRN PRN Reason: Hypoglycemia Stop: 04/12/18 08:59 Sodium Chloride (Normal Saline 0.9%) 200 mls @ 0 mls/hr IV ONE PRN PRN Reason: Bolus PRN SBP < 90 mm Hg Stop: 04/12/18 08:59 Vancomycin HCl 1 gm/ Device 200 mls @ 200 mls/hr IVPB ONE [facility] Stop: 04/12/18 23:59 Insulin Human Lispro (Humalog) 0 units SC .MODERATE SLIDING SC PRN; Protocol PRN Reason: MODERATE SLIDING SCALE Last Admin: 04/11/18 12:07 Dose: 2 unit Insulin Human Lispro (Humalog) 0 units SC .BEDTIME SLIDING SC PRN; Protocol PRN Reason: BEDTIME SLIDING SCALE Lisinopril (Zestril) 2.5 mg PO DAILY [facility] Last Admin: 04/11/18 09:32 Dose: 2.5 mg Metoprolol Tartrate (Lopressor) 12.5 mg PO BID [facility] Last Admin: 04/11/18 09:31 Dose: 12.5 mg Miscellaneous Information (Communication Order-Pharmacy) 1 each FS ONE [facility] Stop: 04/12/18 08:59 Nitroglycerin (Nitrostat) 0.4 mg SL Q5MIN PRN PRN Reason: Chest Pain Stop: 04/12/18 08:59 Nitroglycerin (Nitrostat) 0.4 mg SL Q5MIN PRN PRN Reason: Chest Pain Stop: 04/12/18 08:59 Ondansetron HCl (Zofran Odt) 4 mg PO Q6H PRN PRN Reason: Nausea/Vomiting Stop: 04/12/18 08:59 Pantoprazole Sodium (Protonix) 40 mg PO DAILY [facility] Stop: 04/12/18 08:59 Last Admin: 04/11/18 09:31 Dose: 40 mg Sodium Chloride (Flush - Normal Saline) 10 ml IVF PRN PRN PRN Reason: Saline Flush Stop: 04/12/18 08:59 Last Admin: 04/11/18 09:30 Dose: 10 ml Tramadol HCl (Ultram) 50 mg PO Q6H PRN PRN Reason: Moderate Pain (4-6) Stop: 04/12/18 08:59
[2018-04-11] MEDS: Atorvastatin Calcium 20 MG TAB PO SCH (20:41)
[2018-04-12] MEDS: Metoprolol Tartrate 25 MG TAB PO SCH (05:37)
[2018-04-12] MEDS: Lisinopril 2.5 MG TAB PO SCH (05:37)
--- NOTE | 2018-04-12 05:57 | PDOC.CTH ---
Cardiology Progress Note - Objective Vital Signs Temp Pulse Resp BP Pulse Ox 04/12/18 05:37 67 04/12/18 04:00 97.7 F 67 20 123/69 97 04/11/18 20:30 98.3 F 80 17 95 04/11/18 20:20 98.3 F 80 17 136/73 95 Weight 257 lb 12.8 oz 04/10/18 04/11/18 04/12/18 06:59 06:59 06:59 Intake Total 1330 250 Output Total 550 1500 Balance 780 -1250 - Labs Result Diagrams: 04/10/18 03:59 04/11/18 03:51 Troponin/CKMB Troponin I 1.881 ng/mL (< 0.028) H* 04/08/18 09:24 - Assessment/Plan Severe CAD S/p stent
[2018-04-12] MEDS ORDERED: CABG-Vancomycin 1 GM in Premix Bag 1 BAG IVPB SCH (06:00)
[2018-04-12] MEDS ORDERED: Albumin 5% 500 ML ONE (06:27)
[2018-04-12] MEDS ORDERED: Midazolam HCl 5 mg/5 ml Vial ONE (06:33)
[2018-04-12] MEDS ORDERED: Fentanyl 100 MCG/2 ML VIAL ONE (06:33)
[2018-04-12] MEDS ORDERED: Dexmedetomidine 200 MCG/2 ML VIAL ONE (06:34)
[2018-04-12] MEDS ORDERED: Vecuronium 10 MG VIAL ONE ×2 (06:34→09:44)
[2018-04-12] MEDS ORDERED: Heparin 10,000 UNITS/1 ML VIAL 30,000 UNITS in Sodium Chloride 0.9% 1,000 ML FS SCH (06:45)
[2018-04-12] MEDS ORDERED: Insulin Regular 300 UNITS/3 ML VIAL ONE (08:32)
[2018-04-12] MEDS ORDERED: Phenylephrine HCL 10 MG/ML VIAL ONE (09:35)
[2018-04-12] MEDS ORDERED: PHENYLEPHRINE-NS 100 MCG/ML 10 ML SYRINGE ONE ×2 (09:35→09:44)
[2018-04-12] MEDS ORDERED: Sodium Bicarb 50 MEQ/50 ML VIAL ONE (09:44)
[2018-04-12] MEDS ORDERED: Lidocaine 2% PF 100 mg/5 ml Syringe ONE (09:44)
[2018-04-12] MEDS ORDERED: Papaverine 60 MG/2 ML VIAL ONE (09:44)
[2018-04-12] MEDS ORDERED: Nitroglycerin 50 MG/250 ML BOT ONE (09:44)
[2018-04-12] MEDS ORDERED: Cardioplegic Soln 1,000 ML BAG ONE (09:44)
[2018-04-12] MEDS ORDERED: Lidocaine 1% PF 5 ML VIAL ONE (09:44)
[2018-04-12] MEDS ORDERED: Thrombin 5000 UNITS/5 ML VIAL ONE (09:44)
[2018-04-12] MEDS ORDERED: Mannitol 12.5 GM/50 ML ONE (09:44)
[2018-04-12] MEDS ORDERED: ePHEDrine/0.9% NaCl/PF SYRINGE 50 mg/10 ml ONE (09:44)
[2018-04-12] MEDS ORDERED: Albumin 25% 25 GM/100 ML BOT ONE (09:44)
[2018-04-12] MEDS ORDERED: DOPamine 400 MG/10 ML VIAL ONE (09:44)
[2018-04-12] MEDS ORDERED: Protamine Sulfate 250 MG/25 ML VIAL ONE (09:44)
[2018-04-12] MEDS ORDERED: Heparin 30,000 units/30 ml VIAL ONE (09:44)
[2018-04-12] MEDS ORDERED: Calcium Chloride 1 GM/10 ML Abboject SYRINGE ONE (09:44)
[2018-04-12] MEDS ORDERED: Aminocaproic Acid 5 GM/20 ML VIAL ONE (09:44)
[2018-04-12] MEDS ORDERED: Heparin 5,000 UNITS/ML VIAL ONE (09:44)
[2018-04-12] MEDS ORDERED: Potassium Chloride 60 MEQ/30 ML VIAL ONE (09:44)
[2018-04-12] MEDS ORDERED: Magnesium 5 GM/10 ML VIAL ONE (09:44)
[2018-04-12] MEDS ORDERED: PROPOFOL 200 MG/20 ML VIAL ONE (09:44)
[2018-04-12] MEDS ORDERED: Bivalirudin 250 MG VIAL ONE (10:49)
[2018-04-12] MEDS ORDERED: Fentanyl 100 MCG/2 ML VIAL SLOW IVP PRN (13:48)
[2018-04-12] MEDS ORDERED: Ondansetron HCl/PF 4 MG/2 ML Vial IVP PRN (13:48)
[2018-04-12] MEDS ORDERED: Potassium Chloride 20 MEQ/100 ML PREMIX BAG IVPB PRN (13:48)
[2018-04-12] MEDS ORDERED: Post-Op Insulin Drip Protocol IVPB ONE (13:48)
[2018-04-12] MEDS ORDERED: Guaifenesin DM 100-10/5 ML UDCUP PO PRN (13:48)
[2018-04-12] MEDS ORDERED: Promethazine HCl 25 MG/ML VIAL IM PRN (13:48)
[2018-04-12] MEDS ORDERED: Acetaminophen 325 MG TAB PO PRN (13:48)
[2018-04-12] MEDS ORDERED: HYDROcodone/Acetaminophen 5/325 mg Tablet PO PRN (13:48)
[2018-04-12] MEDS ORDERED: Bisacodyl 10 MG SUPP PR PRN (13:48)
[2018-04-12] MEDS ORDERED: Mag-Al 1200 mg/1200 mg/30 ML UDCUP PO PRN (13:48)
[2018-04-12] MEDS ORDERED: Nitroglycerin 50 MG/250 ML BOT 250 ML IVPB PRN (13:48)
[2018-04-12] MEDS ORDERED: hydrALAZINE 20 MG/ML VIAL SLOW IVP PRN (13:48)
[2018-04-12] MEDS ORDERED: Bisacodyl 5 MG TAB PO PRN (13:48)
[2018-04-12] MEDS ORDERED: Hetastarch 6% 500 ML 500 ML IVPB PRN (13:48)
[2018-04-12] MEDS ORDERED: Dextrose 5% in Water 1,000 ML IV PRN (14:16)
[2018-04-12] MEDS ORDERED: Dextrose 50% Abboject 50 ML SYRINGE SLOW IVP PRN (14:16)
[2018-04-12 14:22] LABS: Actual Bicarbonate (HCO3a) 22.8 mEq/L (22-28); Base Excess (BEa) -1.1 mEq/L (-2.0 to +3.0); CO2 Tension 35.4 mmHg (35.0-45.0); Hemoglobin (Hb) 12.8 g/dL (14.0-18.0); O2 Tension (PaO2) 103.2 mmHg (> 80.0); pH, Arterial 7.43 (7.35-7.45)
[2018-04-12 14:23] LABS: Carboxyhemoglobin (COHb) 0.9 gm% (0.0-3.0)
[2018-04-12 14:24] LABS: Calcium, Ionized 1.1 mmol/L (1.12-1.30); Potassium - ABG Lab 4.1 mmol/L (3.70-5.30); Puncture Site ALINE
[2018-04-12 14:28] LABS: Hemoglobin 12.6 g/dL (14.0-18.0); Mean Corpuscular HGB CONC 34.5 g/dL (32.0-36.0); Mean Corpuscular Hemoglobin 30.1 pg (27.0-31.0); Mean Corpuscular Volume 87.2 fL (78.0-98.0); Mean Platelet Volume 9.2 fL (7.4-10.4); Platelet Count 161 thou/uL (130-400); RBC Distribution Width 12.2 % (11.5-14.5); Red Blood Cell (RBC) Count 4.17 mill/uL (4.70-6.10); White Blood Cell (WBC) Count 27.8 thou/uL (4.8-10.8)
[2018-04-12 14:34] LABS: INR-International Normal Ratio 1.3; PTT 26.6 SEC (22.9-36.1); Prothrombin Time 16.7 SEC (12.0-14.7)
[2018-04-12 14:40] LABS: Band 13 % (5-11); Lymphocytes 6 % (21-51); MDiff Complete? YES; Monocytes 2 % (0-10); Neutrophil 78 % (42-75); PLT Morphology Comment Appears Adequate; Polychromasia SLIGHT = 2-3 cells (100X) (0-2/hpf); Reactive Lymphocytes 1 % (0-10)
[2018-04-12 14:43] LABS: Potassium 4.1 mmol/L (3.5-5.1)
[2018-04-12 14:50] LABS: Anion Gap 15 mmol/L (10-20); BUN (Urea Nitrogen) 12 mg/dL (8.4-25.7); Calc. Creatinine Clearance 129 mL/min (70-130); Calcium 8.1 mg/dL (7.8-10.44); Carbon Dioxide 20 mmol/L (23-31); Chloride 108 mmol/L (98-107); Estimated GFR-MDRD 78; Glucose 139 mg/dL (80-115); Potassium 4.2 mmol/L (3.5-5.1); Sodium 139 mmol/L (136-145)
--- NOTE | 2018-04-12 15:06 | RAD ---
CHEST 1 VIEW: Date: 04/12/18 HISTORY: Status post open heart surgery. COMPARISON: none. FINDINGS: Portable supine chest radiograph demonstrates sternotomy wires. There is a left-sided central venous catheter with the distal tip projecting over the superior vena cava. Endotracheal tube at level of cl avicles. Sternotomy wires are noted. Left-sided chest tube identified. Pleural and parenchymal change s left lung base. No pneumothorax. IMPRESSION: Postsurgical changes compatible with recent open heart surgery. POS: ALAN
[2018-04-12] MEDS: Norepinephrine 8 MG/0.9% NS 250 ML IVPB PRN (15:28)
[2018-04-12] MEDS: Sodium Chloride 0.9% 1,000 ML IV SCH (15:29)
--- NOTE | 2018-04-12 16:02 | OP ---
DATE OF PROCEDURE: 04/12/2018 PROCEDURES PERFORMED: Coronary artery bypass grafting x4 with left internal mammary artery to the di stal LAD, reverse greater saphenous vein graft from the aorta to the first obtuse marginal and sequen tial reverse greater saphenous vein graft from the aorta to the PDA to the posterolateral branch of t he RCA; right carotid endarterectomy. PREOPERATIVE DIAGNOSES: Coronary artery disease, status post [id number] myocardial infarction; bilateral carotid stenosis, right greater than left. POSTOPERATIVE DIAGNOSIS: Coronary artery disease, status post [id number] myocardial infarction ; bilateral carotid stenosis, right greater than left. SURGEON: Angel tran. SHERIFF'S OFFICER: Daryl. ANESTHESIA: General endotracheal anesthesia. INDICATIONS: The patient is a 62-year-old diabetic man with known coronary disease, who had a stroke about 5 years ago that he describes as having caused some difficulties with speech and left-sided we akness. He presented with a stuttering pattern of angina manifest as heartburn-like symptoms, and on presentation with a severe episode, he was found to have positive troponins without ST-elevation on his EKG. Cardiac catheterization demonstrated severe 3-vessel coronary disease that included proxima l LAD disease and included right coronary ultrasonography to investigate his cerebrovascular disease and right carotid bruit, suggested bilateral disease, left worse than right. However, on CT angiogra phy, there were serial stenoses in the distal common and proximal internal carotid, they were in the 80%-90% range, more modest disease on the order of 70% on the left. After discussing treatment optio ns and controversies surrounding the surgical management with concomitant carotid and coronary diseas e, the patient is now taken to the operating room for coronary revascularization and endarterectomy o f his more severely stenotic right carotid. FINDINGS ON THE CORONARY PROCEDURE: Pump time was 96 minutes. Crossclamp time 65 minutes. He had g ood quality WILSON and saphenous vein. The LAD was diffusely diseased in its mid portion, but was soft distally where it was about a 1.5-2-mm vessel. The first obtuse marginal was about 2 mm and of good quality. The PDA and posterolateral branches were both about 1 to 1.5 mm. The PDA distally was fair ly poor quality. The posterolateral was reasonably good quality. The pericardium was closed. On carotid procedure, there was a complex ulcerated plaque at the bulb and proximal ICA, associated wi th a tandem high-grade stenoses. There was good ICA backbleeding. Preshunt clamp time was 6 minutes , shunt time was 17 minutes, post-shunt clamp time was 3 minutes. NARRATIVE REPORT: After informed consent was obtained, the patient was taken to the operating room a nd placed in supine position on the operating table. After the induction of general anesthesia, ultr asound was used to map the greater saphenous vein in the left lower extremity. The patient's left up per chest was prepped and draped in sterile fashion and a triple-lumen central line kit was used to p lace a left subclavian central line by the Seldinger technique. All 3 ports easily aspirated and flu shed. The line was secured. The patient's neck was extended and rotated towards the left. His righ t neck, torso, groins, and lower extremities were then prepped and draped in sterile fashion. The as sistant endoscopically harvested vein from the left lower extremity using an incision just above the knee for a port site and harvesting the vein from about a handbreadth below the knee up to the groin. Vein was prepared for use as a graft and the harvest sites were closed in layers with subcutaneous and subcuticular Vicryl. An oblique incision was made in the skin crease on the right neck using a s calpel and electrocautery. The dissection was carried through the platysma anteromedial to the adair ocleidomastoid muscle and internal jugular vein. The facial vein and another tributaries to the jugu lar system crossing the operative field were ligated and divided. The common carotid arteries dissec nai free from the sheath and the vagus nerve. The dissection was carried cephalad up beyond the leve l of the digastric muscle and hypoglossal nerve. The sling vessels were ligated and divided. A jugu lar digastric node was mobilized to retract laterally out of the way. The external carotid system wa s looped with a vessel loop and the internal carotid artery was isolated. There was heavy plaque pal pable at the bulb and proximal ICA. After adequate circulation time with heparin, the internal carot id, common carotid, and external carotid systems were sequentially occluded. A longitudinal arteriot carmen was made in the distal common carotid artery that was with an 11-blade scalpel and was extended p roximally and distally with Krishna scissors and the endarterectomy plane was developed at the bulb. T he plaque was transected at the common carotid level, everted from the external carotid system, and t hen broken off distally in the internal carotid. The arteriotomy in the internal carotid had to be e xtended somewhat distally to allow for tailoring of the distal feather. The endarterectomy bed was f orcefully irrigated paying particular attention to the distal feather and proximal transection points . An intraluminal carotid shunt was then inserted first distally in the internal carotid and proxima lly in the common carotid, aspirating on a side port for allowing antegrade flow through it into the internal carotid system. The endarterectomy bed was again inspected and irrigated. There was no mor e mobile debris seen. The arteriotomy was then sewn from either apex with running 6-0 Prolene suture with about 0.5 cm arteriotomy left. So, the shunt was clamped and removed reestablishing vascular c ontrol and the origin of the internal carotid and on the common carotid with vessel loops. The [facility] arteriotomy was sewn. The vessels are forward and backbled to allow for flushing of any air or residual debris at the arteriotomy or into the external carotid system. The suture line was secured and antegrade flow was allowed first into the external carotid and then into the internal carotids. The wound was inspected for hemostasis, which appeared to be adequate. The wound was then packed off with Surgicel and the Ray-Madison sponge and covered with a towel. The median sternotomy was performed. The left internal mammary artery was harvested from the level of the xiphoid to the level of the leong bclavian vein. An initial attempt was made to harvest through an extrapleural exposure; however, the pleura proved to be very thin and was violated and ultimately opened widely. The patient was hepari nized. The mammary was ligated and divided distally. There was good flow through the mammary, which was instilled intraluminally with papaverine solution. The mammary bed was inspected for hemostasis . The WILSON retractors were placed with an Ankeney. The pericardium was opened and marsupialized. Th e aorta was palpated and was soft. A double-concentric pursestring of #2 Ethibond was placed in the ascending aorta, just beyond the pericardial reflection, and a single pursestring was placed in the r ight atrial appendage. The aortic and venous cannulae were inserted and secured by their pursestring s. Cardiopulmonary bypass was instituted and the patient was systemically cooled. The heart was exa mined. The vessels to be bypassed were identified. A longitudinal slit was made in the pericardium anterior to the left phrenic nerve so that the mammary pedicle could be passed. The left chest was d rained with a 36-Pakistani chest tube. The plane between the aorta and the pulmonary artery was develop ed and aortic cross clamp was applied and cardioplegia was administered through an aortic root needle . When rested had been achieved, attention was turned to the right coronary system. Points on the p osterolateral branch prior to the terminal bifurcation and on the distal PDA were selected for a sequ ential grafting technique. Saphenous vein was reversed and anastomosed to the posterolateral branch end-to-side with running 6-0 Prolene suture, orienting the anastomosis perpendicular to the axis of t he coronary. A uzqm-ao-cqnt anastomosis was then constructed from that graft to the distal PDA, orie nting the anastomosis parallel to the axis of the coronary. The first obtuse marginal was then opene d and grafted end-to-side with reverse greater saphenous vein. The LAD was then opened distally wher e it became soft. Bleeding from the arteriotomy was controlled with a 1.75-mm intraluminal coronary shunt. The mammary was then anastomosed there end-to-side with running 7-0 Prolene. The mammary ped icle tacked to the epicardium. The aortic crossclamp was replaced with a partial occluding clamp. A ortotomy was made in the ascending aorta with a scalpel and punch. The right coronary system graft w as anastomosed to the more proximal aortotomy and the OM graft to the more distal aortotomy. Both pr oximal anastomoses were marked with small Hemoclips. The partial occluding clamp was removed and the vein grafts deaired and the bulldogs were removed from them. The anastomoses were inspected for hem ostasis. The posterior pericardial drain was brought out through a separate incision and secured wit h suture. Right atrial and right ventricular temporary epicardial pacing wires were placed. The pat ient then easily from cardiopulmonary bypass. The aortic and venous cannulae were removed and the pursestring secured. Protamine was administered. When hemostasis was adequate, an anterior mediastinal drain was placed and pericardium was easily closed over it with running Vicryl. Sternum was reapproximated with #7 stainless steel wires. Fascia was closed over the wires with a heavy Vicr yl. Subcutaneous tissue was irrigated and reapproximated and the skin was closed with Vicryl subcuti cular stitch. The packing was then removed from the neck wound and it was inspected. Hemostasis felix eared to be adequate. A 10-mm flat Ken-Kessler drain was brought out through a separate incision, placing it deep to the platysma. The platysma was then reapproximated with running 3-0 Vicryl and th e skin closed with running 4-0 Vicryl subcuticular stitch and Steri-Strips. The wounds were dressed and the patient taken to the intensive care unit in stable condition.
[2018-04-12 16:57] LABS: Actual Bicarbonate (HCO3a) 20.9 mEq/L (22-28); CO2 Tension 34.7 mmHg (35.0-45.0); O2 Tension (PaO2) 108.7 mmHg (> 80.0)
[2018-04-12 16:58] LABS: Base Excess (BEa) -3.2 mEq/L (-2.0 to +3.0); Hemoglobin (Hb) 13.5 g/dL (14.0-18.0)
[2018-04-12 16:59] LABS: Potassium - ABG Lab 3.8 mmol/L (3.70-5.30)
[2018-04-12 17:00] LABS: Calcium, Ionized 1.1 mmol/L (1.12-1.30); Puncture Site ALINE
[2018-04-12 17:01] LABS: ALV-art Gradient 131.125 (0-20)
[2018-04-12] MEDS: Fentanyl 100 MCG/2 ML VIAL SLOW IVP PRN ×3 (17:01→23:00)
[2018-04-12] MEDS: HYDROcodone/Acetaminophen 5/325 mg Tablet PO PRN (20:17)
[2018-04-13] MEDS: Sodium Chloride 0.9% 1,000 ML IV SCH ×2 (01:57→18:00)
[2018-04-13] MEDS: HYDROcodone/Acetaminophen 5/325 mg Tablet PO PRN ×3 (02:03→17:15)
[2018-04-13] MEDS: Norepinephrine 8 MG/0.9% NS 250 ML IVPB PRN (03:07)
[2018-04-13 03:24] LABS: #Lymphocytes 1.8 thou/uL (1.20-3.40); #Monocytes 1.8 thou/uL (0.11-0.59); #Neutrophils 16.4 thou/uL (1.40-6.50); %Eosinophils 0.1 % (0.0-10.0); %Lymphocytes 9.1 % (21.0-51.0); %Monocytes 8.9 % (0.0-10.0); Hemoglobin 11.4 g/dL (14.0-18.0); Mean Corpuscular HGB CONC 33.4 g/dL (32.0-36.0); Mean Corpuscular Hemoglobin 29.5 pg (27.0-31.0); Mean Corpuscular Volume 88.2 fL (78.0-98.0); Mean Platelet Volume 9.3 fL (7.4-10.4); Platelet Count 190 thou/uL (130-400); RBC Distribution Width 12.4 % (11.5-14.5); Red Blood Cell (RBC) Count 3.86 mill/uL (4.70-6.10)
[2018-04-13 03:43] LABS: Anion Gap 13 mmol/L (10-20); BUN (Urea Nitrogen) 11 mg/dL (8.4-25.7); Calc. Creatinine Clearance 131 mL/min (70-130); Calcium 8.1 mg/dL (7.8-10.44); Carbon Dioxide 21 mmol/L (23-31); Chloride 112 mmol/L (98-107); Estimated GFR-MDRD 78; Glucose 108 mg/dL (80-115); Sodium 142 mmol/L (136-145)
[2018-04-13] MEDS: Fentanyl 100 MCG/2 ML VIAL SLOW IVP PRN (04:52)
--- NOTE | 2018-04-13 06:01 | PDOC.CTH ---
Cardiology Progress Note - Subjective Doing well. Extubated. STill on low dose neosynephrine - Objective Vital Signs Temp Pulse Resp Pulse Ox 04/13/18 03:00 97.8 F 04/12/18 23:00 98.6 F 04/12/18 20:00 98 F 98 24 H 96 04/12/18 19:00 98 F Weight 257 lb 12.8 oz 04/11/18 04/12/18 04/13/18 06:59 06:59 06:59 Intake Total 1330 250 919 Output Total 550 1500 2150 Balance 780 -1250 -1231 - Physical Examination General/Neuro: alert & oriented x3, NAD Neck: carotid US brisk, no JVD present Lungs: CTA, unlabored respirations Heart: PMI normal, RRR Abdomen: no HSM, NT/ND, soft Extremities: + femoral B - Labs Result Diagrams: 04/13/18 03:09 04/13/18 03:09 Troponin/CKMB Troponin I 1.881 ng/mL (< 0.028) H* 04/08/18 09:24 - Assessment/Plan CAD s/p CABG Carotid disease s/p CEA Doing well Add BB when BP more stable and off pressors Hespan given Add statin
--- NOTE | 2018-04-13 06:52 | PDOC.PN ---
- Subjective Encounter Start Date: 04/12/18 Encounter Start Time: 16:00 Patirent is seen today s/p CABG. Still on Dopimine drip/Planned Extubation. - Objective Resuscitation Status: Resuscitation Status FULL:Full Resuscitation MAR Reviewed: Yes Vital Signs & Weight: Vital Signs (12 hours) Temp Pulse Resp Pulse Ox 04/13/18 03:00 97.8 F 04/12/18 23:00 98.6 F 04/12/18 20:00 98 F 98 24 H 96 04/12/18 19:00 98 F Weight Weight 260 lb 2.327 oz Most Recent Monitor Data Heart Rate from ECG 101 NIBP 98/60 NIBP BP-Mean 65 Respiration from ECG 24 SpO2 94 I&O: 04/11/18 04/12/18 04/13/18 06:59 06:59 06:59 Intake Total 2085 984 8211 Output Total 550 1500 2310 Balance 780 -1250 -375 Result Diagrams: 04/13/18 03:09 04/13/18 03:09 Additional Labs: Accuchecks 04/13/18 04/13/18 04/13/18 06:17 04:55 03:13 POC Glucose 160 H 143 H 99 04/13/18 04/12/18 04/12/18 02:10 22:57 22:05 POC Glucose 111 H 150 H 171 H 04/12/18 04/12/18 04/12/18 20:13 18:13 17:19 POC Glucose 173 H 101 112 H 04/12/18 04/12/18 04/12/18 16:03 15:37 14:16 POC Glucose 126 H 115 H 139 H 04/12/18 04/12/18 04/12/18 13:40 12:57 12:00 POC Glucose 116 H 144 H 168 H 04/12/18 04/12/18 04/12/18 11:32 11:11 10:30 POC Glucose 179 H 186 H 193 H 04/12/18 08:24 POC Glucose 234 H Radiology Reviewed by me: Yes Phys Exam - Physical Examination HEENT: PERRLA Neck: no nodes, no JVD Respiratory: no wheezing, no rales Cardiovascular: RRR, no significant murmur Gastrointestinal: soft, non-tender Musculoskeletal: edema present Dx/Plan (1) NSTEMI (non-ST elevated myocardial infarction) Code(s): I21.4 - NON-ST ELEVATION (NSTEMI) MYOCARDIAL INFARCTION Status: Acute Comment: 3-vessel CAD on cath, S/p CABG today, hemodynamical stable, follw cardiology recommedations, Pt on Dopamine drip now. (2) DM2 (diabetes mellitus, type 2) Status: Chronic Comment: HbA1c 8.3, started accuchecks and insulin sliding scale while in hospital. (3) Dyslipidemia Code(s): E78.5 - HYPERLIPIDEMIA, UNSPECIFIED Status: Chronic Comment: continue statin (4) H/O: stroke Code(s): Z86.73 - PRSNL HX OF TIA (TIA), AND CEREB INFRC W/O RESID DEFICITS Status: Chronic Comment: stable (5) HTN (hypertension) Code(s): I10 - ESSENTIAL (PRIMARY) HYPERTENSION Status: Chronic Comment: BP trending up, will add PRN IV hydralazine (6) Hyperglycemia Code(s): R73.9 - HYPERGLYCEMIA, UNSPECIFIED Status: Chronic Comment: stbale , keep SSI. - Plan cont current plan of care, PT/OT, director of social work, incentive spirometry, DVT proph w/lovenox * . Review of Systems - Review of Systems Other: Unable to get ROS. - Medications/Allergies Allergies/Adverse Reactions: Allergies Allergy/AdvReac Type Severity Reaction Status Date / Time Penicillins Allergy Verified 04/07/18 23:33 Medications: Current Medications Acetaminophen (Tylenol) 650 mg PO Q6H PRN PRN Reason: Headache/Fever Or Mild Pain Hydrocodone Bitart/Acetaminophen ([place] 5/325) 1 tab PO Q4H PRN PRN Reason: Moderate Pain (4-6) Hydrocodone Bitart/Acetaminophen ([place] 5/325) 2 tab PO Q4H PRN PRN Reason: Severe Pain (7-10) Last Admin: 04/13/18 02:03 Dose: 2 tab Al Hydroxide/Mg Hydroxide (Maalox) 30 ml PO Q4H PRN PRN Reason: Indigestion Albumin Human (Albumin 5%) 12.5 gm IVPB Q6H PRN PRN Reason: To Maintain SBP> 90 mmHG Stop: 04/13/18 13:49 Albumin Human (Albumin 5%) 25 gm IVPB Q6H PRN PRN Reason: To Maintain SBP > 90 mmHG Stop: 04/13/18 13:49 Last Admin: 04/12/18 17:07 Dose: 25 gm Aspirin (Aspirin) 325 mg PO DAILY RUBY Bisacodyl (Dulcolax) 10 mg PO Q12H PRN PRN Reason: Constipation Bisacodyl (Dulcolax) 10 mg MA Q12H PRN PRN Reason: Constipation Dextrose/Water (Dextrose 50%) 25 gm SLOW IVP PRN PRN PRN Reason: PER HYPOGLYCEMIC PROTOCOL Fentanyl (Sublimaze) 25 mcg SLOW IVP Q2H PRN PRN Reason: Moderate Pain (4-6) Stop: 04/14/18 07:41 Fentanyl (Sublimaze) 50 mcg SLOW IVP Q2H PRN PRN Reason: Severe Pain (7-10) Stop: 04/14/18 07:41 Last Admin: 04/13/18 04:52 Dose: 50 mcg Glucagon (Glucagon) 1 mg SC PRN PRN PRN Reason: PER HYPOGLYCEMIC PROTOCOL Guaifenesin/Dextromethorphan (Robitussin Dm) 15 ml PO Q4H PRN PRN Reason: Cough Hydralazine HCl (Apresoline) 10 mg SLOW IVP Q6H PRN PRN Reason: To Maintain SBP< 140mmHG Hetastarch/Sodium Chloride (Hespan) 500 mls @ 0 mls/hr IVPB PRN PRN PRN Reason: To Maintain SBP > 90mmHg Stop: 04/13/18 07:41 Norepinephrine Bitartrate (Levophed) 250 mls @ 0 mls/hr IVPB PRN PRN; Protocol PRN Reason: To maintain SBP > 90 mmHG Last Admin: 04/13/18 03:07 Dose: 250 mls Nicardipine HCl 25 mg/ Sodium (Chloride) 260 mls @ 0 mls/hr IVPB INF PRN; Protocol PRN Reason: To Maintain SBP< 140mmHG Nitroglycerin/Dextrose (Nitroglycerin 50 Mg/250 Ml Bot) 250 mls @ 0 mls/hr IVPB PRN PRN; Protocol PRN Reason: To Maintain SBP< 140mmHG Sodium Chloride (Normal Saline 0.9%) 1,000 mls @ 75 mls/hr IV .[id number] RUBY Last Admin: 04/13/18 01:57 Dose: Not Given Insulin Human Regular 100 (units/ Sodium Chloride) 101 mls @ 0 mls/hr IVPB INF RUBY; Protocol Last Admin: 04/13/18 05:07 Dose: 101 mls Dextrose/Water (D5w) 1,000 mls @ 0 mls/hr IV INF PRN PRN Reason: PRN HYPOGLYCEMIC PROTOCOL Insulin Glargine (Lantus) 0 units SC ONE PRN PRN Reason: PER OPEN HEART ORDERS Stop: 04/13/18 17:00 Insulin Human Regular (Humulin R) 0 units SC Q4H PRN; Protocol PRN Reason: POST OP SLIDING SCALE Morphine Sulfate (Morphine) 2 mg SLOW IVP Q15MIN PRN PRN Reason: Severe Pain (7-10) Ondansetron HCl (Zofran) 4 mg IVP Q6H PRN PRN Reason: Nausea/Vomiting Last Admin: 04/12/18 20:18 Dose: 4 mg Potassium Chloride (Kcl) 20 meq IVPB PRN PRN PRN Reason: K level </= 4.0 Promethazine HCl (Phenergan) 6.25 mg IM Q4H PRN PRN Reason: Nausea/Vomiting
--- NOTE | 2018-04-13 08:51 | PDOC.PN ---
- Subjective Encounter Start Date: 04/13/18 Encounter Start Time: 08:49 Mr. Escalera was seen today in follow-up of CAD s/p CABG. He is post op day 1. He is feeling a bit sore. He overall does not have any complaints. - Objective Resuscitation Status: Resuscitation Status FULL:Full Resuscitation MAR Reviewed: Yes Vital Signs & Weight: Vital Signs (12 hours) Temp 04/13/18 08:00 98.3 F 04/13/18 03:00 97.8 F 04/12/18 23:00 98.6 F Weight Weight 260 lb 2.327 oz Most Recent Monitor Data Heart Rate from ECG 101 NIBP 83/60 NIBP BP-Mean 77 Respiration from ECG 21 SpO2 95 I&O: 04/12/18 04/13/18 04/14/18 06:59 06:59 06:59 Intake Total 250 1935 350 Output Total 1500 2310 130 Balance -1250 -375 220 Result Diagrams: 04/13/18 03:09 04/13/18 03:09 Additional Labs: Accuchecks 04/13/18 04/13/18 04/13/18 06:17 04:55 03:13 POC Glucose 160 H 143 H 99 04/13/18 04/12/18 04/12/18 02:10 22:57 22:05 POC Glucose 111 H 150 H 171 H 04/12/18 04/12/18 04/12/18 20:13 18:13 17:19 POC Glucose 173 H 101 112 H 04/12/18 04/12/18 04/12/18 16:03 15:37 14:16 POC Glucose 126 H 115 H 139 H 04/12/18 04/12/18 04/12/18 13:40 12:57 12:00 POC Glucose 116 H 144 H 168 H 04/12/18 04/12/18 04/12/18 11:32 11:11 10:30 POC Glucose 179 H 186 H 193 H Phys Exam - Physical Examination HEENT: PERRLA Respiratory: no wheezing, no rales, no rhonchi, clear to auscultation bilateral Cardiovascular: RRR, no significant murmur Gastrointestinal: soft, positive bowel sounds + diffuse tenderness Musculoskeletal: no edema Dx/Plan (1) S/P CABG x 4 Status: Acute (2) NSTEMI (non-ST elevated myocardial infarction) Code(s): I21.4 - NON-ST ELEVATION (NSTEMI) MYOCARDIAL INFARCTION Status: Acute Comment: 3-vessel CAD on cath, S/p CABG today, hemodynamical stable, follw cardiology recommedations, Pt on Dopamine drip now. (3) HTN (hypertension) Code(s): I10 - ESSENTIAL (PRIMARY) HYPERTENSION Status: Chronic Comment: BP trending up, will add PRN IV hydralazine (4) DM2 (diabetes mellitus, type 2) Status: Chronic Comment: HbA1c 8.3, started accuchecks and insulin sliding scale while in hospital. - Plan * CAD s/p CABG- he is stable, his blood pressure tends to run a bit low howver * DM- blood glucose is stable on the insulin drip * Cerebral Vascular disease- he is s/p Right CEA * Continue post op care as per CV - surgery.
--- NOTE | 2018-04-13 09:30 | RAD ---
PORTABLE CHEST ONE VIEW: Date: 04-13-18 Time: 3:59 a.m. History: Post op open heart surgery. FINDINGS/IMPRESSION: There has been interval removal of the endotracheal tube since the exam of the previous day. The rohit [place] of the exam is otherwise stable. POS: ALAN
[2018-04-13] MEDS: Aspirin 325 MG TAB PO SCH (09:57)
[2018-04-13] MEDS ORDERED: Insulin Glargine 30 UNITS in Pre-Filled Syringe 1 EACH SC SCH (11:00)
[2018-04-13] MEDS ORDERED: Metoprolol Tartrate 25 MG TAB PO SCH ×2 (17:15→21:00)
[2018-04-13] MEDS: Insulin Regular 300 UNITS/3 ML VIAL SC PRN ×2 (18:03→21:13)
--- NOTE | 2018-04-14 05:48 | PDOC.CTH ---
Cardiology Progress Note - Subjective Feels better today. CTX2 in place - Objective Vital Signs Temp 04/14/18 04:00 99.0 F 04/14/18 00:00 99.3 F 04/13/18 20:00 98.4 F Weight 260 lb 2.327 oz 04/12/18 04/13/18 04/14/18 06:59 06:59 06:59 Intake Total 250 1935 798 Output Total 1500 2310 1610 Balance -3342 -168 -487 - Physical Examination General/Neuro: alert & oriented x3, NAD Neck: no JVD present Lungs: CTA, unlabored respirations Heart: PMI normal, RRR Abdomen: NT/ND, soft Extremities: + femoral B - Labs Result Diagrams: 04/14/18 06:30 04/14/18 06:30 Troponin/CKMB Troponin I 1.881 ng/mL (< 0.028) H* 04/08/18 09:24 - Assessment/Plan CAD s/p CABG Carotid disease s/p CEA Weaned off norepi add BB (off pressors) on statin CT im place
[2018-04-14 06:48] LABS: #Eosinphils 0.1 thou/uL (0.0-0.7); #Lymphocytes 1.5 thou/uL (1.20-3.40); #Monocytes 1.4 thou/uL (0.11-0.59); #Neutrophils 12.9 thou/uL (1.40-6.50); %Basophils 0.1 % (0.0-1.0); %Eosinophils 0.4 % (0.0-10.0); %Lymphocytes 9.6 % (21.0-51.0); %Monocytes 8.8 % (0.0-10.0); %Neutrophils 81.1 % (42.0-75.0); Hemoglobin 9.8 g/dL (14.0-18.0); Mean Corpuscular HGB CONC 32.3 g/dL (32.0-36.0); Mean Corpuscular Hemoglobin 29.3 pg (27.0-31.0); Mean Corpuscular Volume 90.7 fL (78.0-98.0); Mean Platelet Volume 9.6 fL (7.4-10.4); Platelet Count 136 thou/uL (130-400); RBC Distribution Width 12.4 % (11.5-14.5); Red Blood Cell (RBC) Count 3.33 mill/uL (4.70-6.10); White Blood Cell (WBC) Count 15.9 thou/uL (4.8-10.8)
[2018-04-14 07:03] LABS: Anion Gap 10 mmol/L (10-20); BUN (Urea Nitrogen) 12 mg/dL (8.4-25.7); Calc. Creatinine Clearance 143 mL/min (70-130); Calcium 8.3 mg/dL (7.8-10.44); Carbon Dioxide 27 mmol/L (23-31); Chloride 106 mmol/L (98-107); Estimated GFR-MDRD 87; Glucose 188 mg/dL (80-115); Potassium 4.2 mmol/L (3.5-5.1); Sodium 139 mmol/L (136-145)
[2018-04-14] MEDS: HYDROcodone/Acetaminophen 5/325 mg Tablet PO PRN ×3 (07:53→20:22)
--- NOTE | 2018-04-14 08:15 | RAD ---
UPRIGHT PORTABLE CHEST 1 VIEW: Date: 04/14/18 HISTORY: 62-year-old male, follow-up postop open heart. FINDINGS: Chest tube is in place. Recent postop midline sternotomy with poor inspiratory effort. Pleural and pa renchymal opacity changes in both bases, worse on the left side, evidence for stable postoperative ch raymond. No significant pneumothorax or other new process. IMPRESSION: Overall stable postoperative changes with poor inspiration. Continue short-term follow-up. POS: ALAN
--- NOTE | 2018-04-14 08:29 | PDOC.PN ---
- Subjective Encounter Start Date: 04/14/18 Encounter Start Time: 08:27 Mr. Escalera was seen today in follow-up of CAD - post CABG. He is complaining of some chest soreness, otherwise OK. He also admits to some back pain, and is a bit reluctant to get up to a chair. - Objective Resuscitation Status: Resuscitation Status FULL:Full Resuscitation MAR Reviewed: Yes Vital Signs & Weight: Vital Signs (12 hours) Temp 04/14/18 08:00 99.2 F 04/14/18 04:00 99.0 F 04/14/18 00:00 99.3 F Weight Weight 259 lb 4.218 oz Most Recent Monitor Data Heart Rate from ECG 102 NIBP 122/61 NIBP BP-Mean 72 Respiration from ECG 23 SpO2 98 I&O: 04/13/18 04/14/18 04/15/18 06:59 06:59 06:59 Intake Total 1935 798 Output Total 2310 1890 120 Balance -375 -1092 -120 Result Diagrams: 04/14/18 06:30 04/14/18 06:30 Additional Labs: Accuchecks 04/13/18 04/13/18 04/13/18 16:39 11:03 08:51 POC Glucose 163 H 105 134 H 04/13/18 04/13/18 07:45 00:52 POC Glucose 152 H 133 H Phys Exam - Physical Examination HEENT: PERRLA Respiratory: no wheezing, no rales, no rhonchi, clear to auscultation bilateral Cardiovascular: RRR, no significant murmur, no rub Gastrointestinal: soft, non-tender, positive bowel sounds Musculoskeletal: no edema Dx/Plan (1) S/P CABG x 4 Status: Acute (2) NSTEMI (non-ST elevated myocardial infarction) Code(s): I21.4 - NON-ST ELEVATION (NSTEMI) MYOCARDIAL INFARCTION Status: Acute Comment: 3-vessel CAD on cath, S/p CABG today, hemodynamical stable, follw cardiology recommedations, Pt on Dopamine drip now. (3) HTN (hypertension) Code(s): I10 - ESSENTIAL (PRIMARY) HYPERTENSION Status: Chronic Comment: BP trending up, will add PRN IV hydralazine (4) DM2 (diabetes mellitus, type 2) Status: Chronic Comment: HbA1c 8.3, started accuchecks and insulin sliding scale while in hospital. - Plan * CAD s/p CABG- hemodynamically stable- off pressors- continue aspirin, lipitor , and low dose metoprolol * HTN- blood pressure is stable * DM- blood glucose is stable * Encourage mobilization
[2018-04-14] MEDS ORDERED: Metoprolol Tartrate 25 MG TAB PO SCH ×2 (09:00→10:30)
[2018-04-14] MEDS: Aspirin 325 MG TAB PO SCH (09:31)
[2018-04-14] MEDS: Sodium Chloride 0.9% 1,000 ML IV SCH (09:31)
[2018-04-14] MEDS ORDERED: Mineral Oil ENEMA PR PRN (10:10)
[2018-04-14] MEDS ORDERED: Bisacodyl 5 MG TAB PO PRN (10:10)
[2018-04-14] MEDS ORDERED: Guaifenesin DM 100-10/5 ML UDCUP PO PRN (10:10)
[2018-04-14] MEDS ORDERED: Zolpidem Tartrate 5 MG TAB PO PRN (10:10)
[2018-04-14] MEDS ORDERED: Artificial Tears 18 DROP/0.9 ML EA EYE PRN (10:10)
[2018-04-14] MEDS ORDERED: Mag-Al 1200 mg/1200 mg/30 ML UDCUP PO PRN (10:10)
[2018-04-14] MEDS ORDERED: Dextrose 5% in Water 1,000 ML IV PRN (10:10)
[2018-04-14] MEDS ORDERED: Nitroglycerin 0.4 MG TAB (25 Tab Bottle) SL PRN (10:10)
[2018-04-14] MEDS ORDERED: diphenhydrAMINE 25 MG CAP PO PRN (10:10)
[2018-04-14] MEDS ORDERED: Dextrose 50% Abboject 50 ML SYRINGE SLOW IVP PRN (10:10)
[2018-04-14] MEDS ORDERED: Bisacodyl 10 MG SUPP PR PRN (10:10)
[2018-04-14] MEDS: Furosemide 20 MG TAB PO SCH ×2 (10:25→13:20)
[2018-04-14] MEDS ORDERED: Potassium Chloride 20 MEQ TAB PO SCH (10:30)
[2018-04-14] MEDS: Insulin Regular 300 UNITS/3 ML VIAL SC PRN ×2 (11:31→17:33)
--- NOTE | 2018-04-14 15:12 | EKG ---
Test Reason : POST CABG Blood Pressure : / mmHG Vent. Rate : 076 BPM Atrial Rate : 076 BPM P-R Int : 170 ms QRS Dur : 094 ms QT Int : 454 ms P-R-T Axes : 039 069 034 degrees QTc Int : 510 ms Normal sinus rhythm with sinus arrhythmia T wave abnormality, consider lateral ischemia Prolonged QT Abnormal ECG Confirmed by MONA SCHAEFFER MD ([id number]) on 04/14/2018 3:11:37 PM Referred By: PATITO Confirmed By:MONA SCHAEFFER MD
[2018-04-14] MEDS: Potassium Chloride 20 MEQ TAB PO SCH (17:34)
[2018-04-14] MEDS ORDERED: Sodium Chloride 0.9% 10 ML ONE (20:08)
[2018-04-14] MEDS ORDERED: Sodium Chloride 0.9% 20 ML ONE (20:08)
[2018-04-14] MEDS: Atorvastatin Calcium 40 MG TAB PO SCH (20:22)
[2018-04-14] MEDS: Metoprolol Tartrate 25 MG TAB PO SCH (20:22)
[2018-04-15] MEDS: HYDROcodone/Acetaminophen 5/325 mg Tablet PO PRN ×3 (00:23→20:57)
[2018-04-15] MEDS: Clopidogrel Bisulfate 75 MG TAB PO SCH (04:37)
[2018-04-15 06:03] LABS: #Eosinphils 0.3 thou/uL (0.0-0.7); #Lymphocytes 2.1 thou/uL (1.20-3.40); #Monocytes 1.2 thou/uL (0.11-0.59); #Neutrophils 10.4 thou/uL (1.40-6.50); %Basophils 0.2 % (0.0-1.0); %Eosinophils 1.9 % (0.0-10.0); %Lymphocytes 14.7 % (21.0-51.0); %Monocytes 8.8 % (0.0-10.0); %Neutrophils 74.3 % (42.0-75.0); Hemoglobin 9.5 g/dL (14.0-18.0); Mean Corpuscular HGB CONC 33.9 g/dL (32.0-36.0); Mean Corpuscular Hemoglobin 30.3 pg (27.0-31.0); Mean Corpuscular Volume 89.4 fL (78.0-98.0); Mean Platelet Volume 10.1 fL (7.4-10.4); Platelet Count 142 thou/uL (130-400); RBC Distribution Width 12.2 % (11.5-14.5); Red Blood Cell (RBC) Count 3.14 mill/uL (4.70-6.10); White Blood Cell (WBC) Count 13.9 thou/uL (4.8-10.8)
[2018-04-15 06:05] LABS: Anion Gap 11 mmol/L (10-20); BUN (Urea Nitrogen) 14 mg/dL (8.4-25.7); Calc. Creatinine Clearance 137 mL/min (70-130); Calcium 8.2 mg/dL (7.8-10.44); Carbon Dioxide 28 mmol/L (23-31); Chloride 103 mmol/L (98-107); Estimated GFR-MDRD 82; Glucose 150 mg/dL (80-115); Potassium 4.3 mmol/L (3.5-5.1); Sodium 138 mmol/L (136-145)
[2018-04-15] MEDS: Potassium Chloride 20 MEQ TAB PO SCH ×2 (08:15→17:01)
[2018-04-15] MEDS: Metoprolol Tartrate 25 MG TAB PO SCH ×2 (08:15→20:57)
[2018-04-15] MEDS: Furosemide 20 MG TAB PO SCH ×2 (08:16→14:08)
[2018-04-15] MEDS: Insulin Regular 300 UNITS/3 ML VIAL SC PRN ×4 (08:16→20:58)
[2018-04-15] MEDS: Aspirin 325 mg Enteric Coated Tablet PO SCH (08:16)
--- NOTE | 2018-04-15 10:52 | PDOC.PN ---
- Subjective Encounter Start Date: 04/15/18 Encounter Start Time: 10:50 Mr. Escalera was seen today in follow-up of CAD post CABG. His main concern is back pain, which he had prior to surgery, and now it is a bit worse. He denies chest pain or shortness of breath - Objective Resuscitation Status: Resuscitation Status FULL:Full Resuscitation MAR Reviewed: Yes Vital Signs & Weight: Vital Signs (12 hours) Temp Pulse Pulse Pulse Resp BP BP 04/15/18 08:44 105 H 116 H 134/78 134/87 04/15/18 07:23 98.2 F 101 H 18 04/15/18 07:03 98.2 F 101 H 18 04/15/18 03:03 97.7 F 102 H 20 04/14/18 23:51 99.5 F 95 20 BP Pulse Ox Pulse Ox Pulse Ox 04/15/18 08:44 95 90 L 04/15/18 07:23 95 04/15/18 07:03 108/77 95 04/15/18 03:03 113/56 L 97 04/14/18 23:51 116/62 98 Weight Weight 260 lb 3.2 oz Most Recent Monitor Data Heart Rate from ECG 104 NIBP 99/61 NIBP BP-Mean 67 Respiration from ECG 31 SpO2 98 I&O: 04/14/18 04/15/18 04/16/18 06:59 06:59 06:59 Intake Total 798 1160 Output Total 1890 2440 Balance -1092 -1280 Result Diagrams: 04/15/18 05:36 04/15/18 05:36 Additional Labs: Accuchecks 04/15/18 04/14/18 04/14/18 05:25 20:31 17:08 POC Glucose 138 H 128 H 156 H 04/14/18 04/14/18 11:10 06:35 POC Glucose 198 H 180 H Phys Exam - Physical Examination HEENT: PERRLA Respiratory: no wheezing, no rales, no rhonchi, clear to auscultation bilateral Cardiovascular: RRR, no significant murmur, no rub Gastrointestinal: soft, non-tender, positive bowel sounds Musculoskeletal: no edema Neurological: non-focal Dx/Plan (1) S/P CABG x 4 Status: Acute (2) NSTEMI (non-ST elevated myocardial infarction) Code(s): I21.4 - NON-ST ELEVATION (NSTEMI) MYOCARDIAL INFARCTION Status: Acute Comment: 3-vessel CAD on cath, S/p CABG today, hemodynamical stable, follw cardiology recommedations, Pt on Dopamine drip now. (3) HTN (hypertension) Code(s): I10 - ESSENTIAL (PRIMARY) HYPERTENSION Status: Chronic Comment: BP trending up, will add PRN IV hydralazine (4) DM2 (diabetes mellitus, type 2) Status: Chronic Comment: HbA1c 8.3, started accuchecks and insulin sliding scale while in hospital. - Plan * CAD s/p CABG- he is clinically stable * HTN- blood pressure is stable * DM- blood glucose is stable * Continue post CABG care as per CV-surgery * Continue cardiac rehab.
--- NOTE | 2018-04-15 13:19 | RAD ---
PORTABLE CHEST: HISTORY: Postop sternotomy evaluation. COMPARISON: 04/14/18. FINDINGS: Cardiomegaly. Postop sternotomy wires were noted. Left chest tube again noted. Left basilar atelec tasis or consolidation obscures the left hemidiaphragm. Upper lung espitia remain clear and well aera nai. Central line unchanged. IMPRESSION: Evidence of left basilar atelectasis or infiltrate. No acute interval change noted. POS: [facility]
--- NOTE | 2018-04-15 14:42 | EKG ---
Test Reason : CHEST PAIN RESOLVED Blood Pressure : / mmHG Vent. Rate : 088 BPM Atrial Rate : 088 BPM P-R Int : 152 ms QRS Dur : 092 ms QT Int : 370 ms P-R-T Axes : 027 072 100 degrees QTc Int : 447 ms Sinus rhythm with occasional Premature ventricular complexes Possible Inferior infarct , age undetermined Abnormal ECG Confirmed by BAILEY TIPTON, SHADY Pappas ([id number]), videotape editor ALEXANDER VARGAS ([id number]) on 04/15/2018 2:42:13 PM Referred By: Confirmed By:SHADY AVALOS MD
[2018-04-15] MEDS: Atorvastatin Calcium 40 MG TAB PO SCH (20:57)
[2018-04-15] MEDS: Sodium Chloride 0.9% 30 ML ONE (20:58)
[2018-04-16 06:07] LABS: #Eosinphils 0.4 thou/uL (0.0-0.7); #Lymphocytes 1.7 thou/uL (1.20-3.40); #Monocytes 1.2 thou/uL (0.11-0.59); #Neutrophils 9.6 thou/uL (1.40-6.50); %Basophils 0.3 % (0.0-1.0); %Eosinophils 2.7 % (0.0-10.0); %Lymphocytes 13.3 % (21.0-51.0); %Monocytes 9.5 % (0.0-10.0); %Neutrophils 74.3 % (42.0-75.0); Hemoglobin 10.4 g/dL (14.0-18.0); Mean Corpuscular HGB CONC 33.4 g/dL (32.0-36.0); Mean Corpuscular Hemoglobin 29.8 pg (27.0-31.0); Mean Corpuscular Volume 89.3 fL (78.0-98.0); Mean Platelet Volume 9.5 fL (7.4-10.4); Platelet Count 235 thou/uL (130-400); RBC Distribution Width 12.3 % (11.5-14.5); White Blood Cell (WBC) Count 12.9 thou/uL (4.8-10.8)
[2018-04-16 06:29] LABS: Anion Gap 11 mmol/L (10-20); BUN (Urea Nitrogen) 15 mg/dL (8.4-25.7); Calc. Creatinine Clearance 138 mL/min (70-130); Calcium 8.3 mg/dL (7.8-10.44); Carbon Dioxide 29 mmol/L (23-31); Chloride 100 mmol/L (98-107); Estimated GFR-MDRD 83; Glucose 154 mg/dL (80-115); Potassium 3.5 mmol/L (3.5-5.1); Sodium 136 mmol/L (136-145)
[2018-04-16] MEDS: HYDROcodone/Acetaminophen 5/325 mg Tablet PO PRN ×2 (08:44→19:01)
[2018-04-16] MEDS: Aspirin 325 mg Enteric Coated Tablet PO SCH (08:45)
[2018-04-16] MEDS: Metoprolol Tartrate 25 MG TAB PO SCH (08:45)
--- NOTE | 2018-04-16 09:28 | RAD ---
PORTABLE CHEST: HISTORY: Post CABG procedure. COMPARISON: 04/15/18. FINDINGS: Cardiomegaly with postop sternotomy wires. Lungs appear clear and well aerated. No evidence of vasc ular congestion. Left chest drainage catheter is noted. No acute interval change. POS: [facility]
--- NOTE | 2018-04-16 09:48 | PDOC.PN ---
- Subjective Encounter Start Date: 04/16/18 Encounter Start Time: 09:45 Mr. Escalera was seen today in follow-up of CAD. He does not have any complaints. He rested better last night, and back pain is more manageable. - Objective Resuscitation Status: Resuscitation Status FULL:Full Resuscitation MAR Reviewed: Yes Vital Signs & Weight: Vital Signs (12 hours) Temp Pulse Resp BP Pulse Ox 04/16/18 08:00 98.6 F 96 18 113/77 94 L 04/16/18 04:00 98.1 F 101 H 20 102/67 96 04/15/18 23:52 91 16 120/64 93 L Weight Weight 258 lb 11.2 oz Most Recent Monitor Data Heart Rate from ECG 104 NIBP 99/61 NIBP BP-Mean 67 Respiration from ECG 31 SpO2 98 I&O: 04/15/18 04/16/18 04/17/18 06:59 06:59 06:59 Intake Total 1160 1730 Output Total 2440 2995 Balance -1280 -1265 Result Diagrams: 04/16/18 05:35 04/16/18 05:35 Additional Labs: Accuchecks 04/16/18 04/15/18 04/15/18 05:41 20:29 16:51 POC Glucose 142 H 133 H 135 H 04/15/18 11:07 POC Glucose 175 H Phys Exam - Physical Examination HEENT: PERRLA Respiratory: no wheezing, no rales, no rhonchi, clear to auscultation bilateral Cardiovascular: RRR, no significant murmur, no rub Gastrointestinal: soft, non-tender, positive bowel sounds Musculoskeletal: no edema Dx/Plan (1) S/P CABG x 4 Status: Acute (2) NSTEMI (non-ST elevated myocardial infarction) Code(s): I21.4 - NON-ST ELEVATION (NSTEMI) MYOCARDIAL INFARCTION Status: Acute Comment: 3-vessel CAD on cath, S/p CABG today, hemodynamical stable, follw cardiology recommedations, Pt on Dopamine drip now. (3) HTN (hypertension) Code(s): I10 - ESSENTIAL (PRIMARY) HYPERTENSION Status: Chronic Comment: BP trending up, will add PRN IV hydralazine (4) DM2 (diabetes mellitus, type 2) Status: Chronic Comment: HbA1c 8.3, started accuchecks and insulin sliding scale while in hospital. - Plan * CAD s/p CABG. He is steadily improving * HTN- blood pressure has been stable * DM- blood glucose is stable * Continue Cardiac Rehab * Chronic low back pain- stable.
[2018-04-16] MEDS ORDERED: Metoprolol Tartrate 25 MG TAB PO SCH (11:15)
[2018-04-16] MEDS: Insulin Regular 300 UNITS/3 ML VIAL SC PRN (19:00)
[2018-04-16] MEDS: Atorvastatin Calcium 40 MG TAB PO SCH (21:05)
[2018-04-16] MEDS: Metoprolol Tartrate 50 MG TAB PO SCH (21:06)
[2018-04-16] MEDS: Sodium Chloride 0.9% 30 ML ONE (21:06)
--- NOTE | 2018-04-17 05:50 | PDOC.CTH ---
Cardiology Progress Note - Subjective Pt doing well. Trasferred from ICU over weekend. CT time two still in place - Objective Vital Signs Temp Pulse Resp BP BP Pulse Ox 04/17/18 04:00 98.2 F 88 16 117/63 95 04/16/18 21:05 97.5 F L 108 H 16 96 04/16/18 20:01 97.5 F L 108 H 16 125/71 96 Weight 256 lb 9.6 oz 04/15/18 04/16/18 04/17/18 06:59 06:59 06:59 Intake Total 1160 1730 800 Output Total 2440 2995 1305 Balance -1280 -1265 -505 - Physical Examination General/Neuro: alert & oriented x3, NAD Neck: carotid US brisk, no JVD present Lungs: unlabored respirations Heart: PMI normal, RRR Abdomen: NT/ND, soft Extremities: + femoral B - Telemetry Telemetry Rhythm: SR - Labs Result Diagrams: 04/17/18 05:32 04/17/18 05:32 Troponin/CKMB Troponin I 1.881 ng/mL (< 0.028) H* 04/08/18 09:24 - Assessment/Plan CAD s/p CABG Carotid disease s/p CEA On statin, BB and ASA PT and IS CT per CV surgery
[2018-04-17 05:57] LABS: #Eosinphils 0.5 thou/uL (0.0-0.7); #Monocytes 1.2 thou/uL (0.11-0.59); %Basophils 0.3 % (0.0-1.0); %Eosinophils 4.2 % (0.0-10.0); %Lymphocytes 16.8 % (21.0-51.0); %Monocytes 10.4 % (0.0-10.0); %Neutrophils 68.2 % (42.0-75.0); Hemoglobin 10.4 g/dL (14.0-18.0); Mean Corpuscular HGB CONC 32.3 g/dL (32.0-36.0); Mean Corpuscular Hemoglobin 28.6 pg (27.0-31.0); Mean Corpuscular Volume 88.5 fL (78.0-98.0); Mean Platelet Volume 8.9 fL (7.4-10.4); Platelet Count 278 thou/uL (130-400); RBC Distribution Width 12.4 % (11.5-14.5); Red Blood Cell (RBC) Count 3.65 mill/uL (4.70-6.10); White Blood Cell (WBC) Count 11.8 thou/uL (4.8-10.8)
[2018-04-17 06:10] LABS: Anion Gap 12 mmol/L (10-20); BUN (Urea Nitrogen) 14 mg/dL (8.4-25.7); Calc. Creatinine Clearance 133 mL/min (70-130); Calcium 8.4 mg/dL (7.8-10.44); Carbon Dioxide 26 mmol/L (23-31); Chloride 103 mmol/L (98-107); Estimated GFR-MDRD 80; Glucose 159 mg/dL (80-115); Potassium 3.9 mmol/L (3.5-5.1); Sodium 137 mmol/L (136-145)
--- NOTE | 2018-04-17 08:52 | PDOC.PN ---
- Subjective Encounter Start Date: 04/17/18 Encounter Start Time: 08:50 Mr. Escalera was seen today in follow-up of CAD post CABG. He is a bit disappointed that the chest tube has to stay in today. He has a bit of dry cough , but otherwise no complaints. - Objective Resuscitation Status: Resuscitation Status FULL:Full Resuscitation MAR Reviewed: Yes Vital Signs & Weight: Vital Signs (12 hours) Temp Pulse Resp BP Pulse Ox 04/17/18 06:58 94 L 04/17/18 04:00 98.2 F 88 16 117/63 95 04/16/18 21:05 97.5 F L 108 H 16 96 Weight Weight 256 lb 9.6 oz Most Recent Monitor Data Heart Rate from ECG 104 NIBP 99/61 NIBP BP-Mean 67 Respiration from ECG 31 SpO2 98 I&O: 04/16/18 04/17/18 04/18/18 06:59 06:59 06:59 Intake Total 1730 800 Output Total 2995 1305 Balance -1265 -505 Result Diagrams: 04/17/18 05:32 04/17/18 05:32 Additional Labs: Accuchecks 04/17/18 04/16/18 04/16/18 05:30 21:05 16:56 POC Glucose 158 H 198 H 138 H 04/16/18 10:58 POC Glucose 146 H Phys Exam - Physical Examination HEENT: PERRLA + occasional rhonchi, no rales Cardiovascular: RRR, no significant murmur, no rub Gastrointestinal: soft, non-tender, positive bowel sounds Musculoskeletal: no edema Dx/Plan (1) S/P CABG x 4 Status: Acute (2) NSTEMI (non-ST elevated myocardial infarction) Code(s): I21.4 - NON-ST ELEVATION (NSTEMI) MYOCARDIAL INFARCTION Status: Acute Comment: 3-vessel CAD on cath, S/p CABG today, hemodynamical stable, follw cardiology recommedations, Pt on Dopamine drip now. (3) HTN (hypertension) Code(s): I10 - ESSENTIAL (PRIMARY) HYPERTENSION Status: Chronic Comment: BP trending up, will add PRN IV hydralazine (4) DM2 (diabetes mellitus, type 2) Status: Chronic Comment: HbA1c 8.3, started accuchecks and insulin sliding scale while in hospital. - Plan * CAD s/p CABG- clinically stable - as per CV Surgery * HTN- blood pressure is controlled * DM- blood glucose is stable * Continue Cardiac Rehab .
[2018-04-17] MEDS: Metoprolol Tartrate 50 MG TAB PO SCH ×2 (09:02→20:00)
[2018-04-17] MEDS: Aspirin 325 mg Enteric Coated Tablet PO SCH (09:02)
--- NOTE | 2018-04-17 09:26 | RAD ---
PORTABLE CHEST ONE VIEW: Date: 04-17-18 Time: 8:18 a.m. History: CABG FINDINGS/IMPRESSION: No significant interval change is seen since the previous day's exam. POS: [facility]
[2018-04-17] MEDS: Insulin Regular 300 UNITS/3 ML VIAL SC PRN (12:03)
[2018-04-17] MEDS: HYDROcodone/Acetaminophen 5/325 mg Tablet PO PRN ×2 (15:33→20:03)
[2018-04-17] MEDS: Atorvastatin Calcium 40 MG TAB PO SCH (20:00)
[2018-04-18] MEDS: HYDROcodone/Acetaminophen 5/325 mg Tablet PO PRN (03:47)
--- NOTE | 2018-04-18 05:55 | PDOC.CTH ---
Cardiology Progress Note - Objective Vital Signs Temp Pulse Resp BP Pulse Ox 04/18/18 03:12 97.9 F 86 18 122/68 94 L 04/17/18 19:56 98.7 F 100 16 106/61 96 Weight 256 lb 9.6 oz 04/16/18 04/17/18 04/18/18 06:59 06:59 06:59 Intake Total 1730 800 600 Output Total 2995 1425 500 Balance -1265 -625 100 - Labs Result Diagrams: 04/17/18 05:32 04/17/18 05:32 Troponin/CKMB Troponin I 1.881 ng/mL (< 0.028) H* 04/08/18 09:24 - Assessment/Plan CAD s/p CABG Carotid disease s/p CEA On BB, ASA and statin IP and PT
[2018-04-18 06:28] LABS: Anion Gap 11 mmol/L (10-20); BUN (Urea Nitrogen) 13 mg/dL (8.4-25.7); Calc. Creatinine Clearance 146 mL/min (70-130); Calcium 8.2 mg/dL (7.8-10.44); Carbon Dioxide 26 mmol/L (23-31); Chloride 103 mmol/L (98-107); Estimated GFR-MDRD 90; Glucose 157 mg/dL (80-115); Potassium 3.9 mmol/L (3.5-5.1); Sodium 136 mmol/L (136-145)
[2018-04-18 06:47] LABS: #Eosinphils 0.5 thou/uL (0.0-0.7); #Lymphocytes 1.5 thou/uL (1.20-3.40); #Monocytes 1.1 thou/uL (0.11-0.59); #Neutrophils 8.1 thou/uL (1.40-6.50); %Basophils 0.4 % (0.0-1.0); %Eosinophils 4.7 % (0.0-10.0); %Lymphocytes 13.6 % (21.0-51.0); %Monocytes 9.7 % (0.0-10.0); %Neutrophils 71.7 % (42.0-75.0); Hemoglobin 10.4 g/dL (14.0-18.0); Mean Corpuscular HGB CONC 33.7 g/dL (32.0-36.0); Mean Platelet Volume 8.7 fL (7.4-10.4); Platelet Count 299 thou/uL (130-400); RBC Distribution Width 12.3 % (11.5-14.5); Red Blood Cell (RBC) Count 3.46 mill/uL (4.70-6.10); White Blood Cell (WBC) Count 11.3 thou/uL (4.8-10.8)
--- NOTE | 2018-04-18 08:18 | PDOC.PN ---
- Subjective Encounter Start Date: 04/18/18 Encounter Start Time: 08:17 Mr. Escalera does not have any complaints. He says he feels much better. He has been cleared for discharge. - Objective Resuscitation Status: Resuscitation Status FULL:Full Resuscitation MAR Reviewed: Yes Vital Signs & Weight: Vital Signs (12 hours) Temp Pulse Resp BP Pulse Ox 04/18/18 08:14 99 F 84 18 128/81 97 04/18/18 03:12 97.9 F 86 18 122/68 94 L Weight Weight 256 lb 4.8 oz Most Recent Monitor Data Heart Rate from ECG 104 NIBP 99/61 NIBP BP-Mean 67 Respiration from ECG 31 SpO2 98 I&O: 04/17/18 04/18/18 04/19/18 06:59 06:59 06:59 Intake Total 800 1080 Output Total 1425 1020 Balance -625 60 Result Diagrams: 04/18/18 05:50 04/18/18 05:50 Additional Labs: Accuchecks 04/18/18 04/17/18 04/17/18 05:37 20:49 16:51 POC Glucose 146 H 176 H 135 H 04/17/18 11:02 POC Glucose 151 H Phys Exam - Physical Examination Respiratory: no wheezing, no rales, no rhonchi, clear to auscultation bilateral Cardiovascular: RRR, no significant murmur, no rub Gastrointestinal: soft, non-tender, positive bowel sounds Musculoskeletal: no edema Dx/Plan (1) S/P CABG x 4 Status: Acute (2) NSTEMI (non-ST elevated myocardial infarction) Code(s): I21.4 - NON-ST ELEVATION (NSTEMI) MYOCARDIAL INFARCTION Status: Acute Comment: 3-vessel CAD on cath, S/p CABG today, hemodynamical stable, follw cardiology recommedations, Pt on Dopamine drip now. (3) HTN (hypertension) Code(s): I10 - ESSENTIAL (PRIMARY) HYPERTENSION Status: Chronic Comment: BP trending up, will add PRN IV hydralazine (4) DM2 (diabetes mellitus, type 2) Status: Chronic Comment: HbA1c 8.3, started accuchecks and insulin sliding scale while in hospital. - Plan * Patient is clinically stable for discharge.
[2018-04-18] MEDS: Aspirin 325 mg Enteric Coated Tablet PO SCH (08:19)
[2018-04-18] MEDS: Metoprolol Tartrate 50 MG TAB PO SCH (08:19)
--- NOTE | 2018-04-18 08:54 | RAD ---
CHEST ONE VIEW: History: CABG Comparison: Prior day FINDINGS: Heart size is enlarged. A left thoracostomy tube has been placed, unchanged position. Small left basi lar pneumothorax. IMPRESSION: Small left basilar pneumothorax. POS: [facility]
[2018-04-18 12:17] VITALS: BP 95/50; TEMP 99.9
--- NOTE | 2018-04-18 12:41 | DIS ---
PRIMARY CARE PHYSICIAN: Dr. Rajendra Franco DATE OF ADMISSION: 04/08/2018 DATE OF DISCHARGE; 04/18/2018 DISCHARGE DISPOSITION: Home. PRIMARY DISCHARGE DIAGNOSES: 1. Non-ST segment elevated myocardial infarction. 2. Cerebral vascular disease. 3. Status post 4-vessel coronary artery bypass graft. 4. New onset diabetes mellitus. 5. Hypertension. 6. Obesity. DISCHARGE MEDICATIONS: Lopressor 50 mg twice daily, metformin 500 mg twice a day, Lyman 5/325 q.4 ho urs as needed, Lipitor 40 mg at bedtime, aspirin 325 mg daily, omeprazole 20 mg daily. CODE STATUS: Full code. ALLERGIES: PENICILLIN. PROCEDURES DONE DURING ADMISSION: The patient had a cardiac catheterization in which there was multi vessel coronary artery disease found with a preserved EF. The patient also had bilateral carotid Dop plers demonstrating moderate degree of stenosis bilaterally 60%. The patient had a CTA of the neck s howing severe bilateral proximal ICA stenosis. The patient had a CT scan of the chest showing no acu te lung process and some cholelithiasis. HOSPITAL COURSE: Mr. Escalera is a pleasant 62-year-old gentleman who presented to the emergency [facility] with complaints of chest pain. He was evaluated in the ER and found to have an elevated troponin. He was seen urgently by Cardiology and underwent emergent cardiac catheterization. He was found to have multivessel coronary artery disease and Vascular Surgery was consulted. He was seen by Dr. Ochoa muller and he underwent a 4-vessel bypass surgery as well as a right carotid endarterectomy. The le ft would be left to a later date. The patient had an uneventful postoperative course. He was also f ound to have diabetes mellitus during his hospital stay. His blood glucoses were in the mid 150 rang e fasting and he had a hemoglobin A1c done which was 8.3. For this reason, he is being started on me tformin. He will need close outpatient follow up for this. This was also explained to the patient. On 04/18/2018 he will be discharged home.
--- NOTE | 2018-04-18 12:53 | DIS ---
DATE OF ADMISSION: 04/07/2018 DATE OF DISCHARGE: 04/18/2018 PRINCIPAL DIAGNOSES: Coronary artery disease with non-ST elevation myocardial infarction. SECONDARY DIAGNOSES: Cerebral vascular disease with bilateral carotid stenosis, right worse than lef t; type 2 diabetes mellitus, dyslipidemia, and peripheral vascular disease. PROCEDURES PERFORMED: Cardiac catheterization 04/10/2018. Coronary artery bypass grafting x4 with l eft internal mammary artery to the distal LAD, reverse greater saphenous vein graft from the aorta to the first obtuse marginal and sequential reverse greater saphenous vein graft from the aorta to the PDA to the posterolateral branch of the RCA in conjunction with right carotid endarterectomy, 018. HISTORY OF PRESENT ILLNESS AND HOSPITAL COURSE: The patient is a 62-year-old man with some issues wi th medical noncompliance. He has known coronary disease having previously undergone stenting of his LAD and right coronary arteries. He reports having had a stroke about 5 years ago. He recently deve loped some heartburn-type pain and when he presented with more prolonged and severe episode of discom fort, he is found to have a positive troponin, but no ST elevations on his EKG. Cardiac catheterizat ion demonstrates severe three-vessel coronary disease that included proximal LAD disease and an occlu ded right coronary. He had preserved left ventricular systolic function with an EF of around 50% or 60% and LVEDP of 31. He had a soft right carotid bruit and ultrasonography suggested bilateral disea se, worse on the left than on the right, but CT angiography fairly convincingly showed a very high gr tl right carotid stenosis on the order of around 90% with a left carotid stenosis on the order of ab out 70% while asymptomatic with respect to claudication. I was not able to appreciate pulses in his feet. He underwent combined coronary artery bypass grafting and right carotid endarterectomy on 03/23. He was extubated the afternoon of surgery, but remained mildly pressor dependent that day an d through much of the next. He was transferred to the telemetry unit on postoperative day #2 and diu resis was initiated. He at baseline was somewhat tachycardic. Beta blockers in the form of Lopresso r were started. Initially at 12.5 mg a day and then gradually increased ultimately to 50 mg twice a day. His chief issue of note for the remainder of his hospital stay was relatively high outputs from his left-sided chest tube. They appeared to level off at a brenda of around 200 mL a day and were re moved on postoperative day #6. He is now being discharged home. His Plavix that he had been inconsi stently taking has been stopped and his aspirin has been increased from 81 mg a day to 325 mg a day. His Lipitor has been increased to 40 mg a day. His metoprolol has been changed from Toprol-XL 25 a day to Lopressor 50 mg b.i.d. and his Norvasc and lisinopril have been held. He has been maintained on sliding scale insulin. His glucoses were in the high 100s at presentation in the 180s, but his he moglobin A1c was 8.3. This was on no specific management beyond diet and we will defer management of that to the patient's primary care. I will plan on seeing the patient in office in about a week or two for a postop check. He has been [facility].
[2018-04-18 14:55] VITALS: BMI 33.7
--- NOTE | 2018-04-18 18:02 | PDOC.CTH ---
Cardiology Progress Note - Subjective Patient without complaints. Discharged by [facility]. - Objective Vital Signs Temp Pulse Resp BP Pulse Ox 04/18/18 12:15 99.9 F H 80 18 95/50 L 95 04/18/18 08:15 99 F 84 18 97 04/18/18 08:14 99 F 84 18 128/81 97 Admit Weight 262 lb 6.4 oz Weight 256 lb 4.8 oz 04/17/18 04/18/18 04/19/18 06:59 06:59 06:59 Intake Total 800 1080 Output Total 1425 1020 Balance -625 60 - Physical Examination General/Neuro: alert & oriented x3 Neck: no JVD present Lungs: CTA Heart: RRR Abdomen: NT/ND Extremities: other: (no edema) Other PE findings: sternal incision healing without erythema, drainage - Telemetry Telemetry Rhythm: SR - Labs Result Diagrams: 04/18/18 05:50 04/18/18 05:50 Troponin/CKMB Troponin I 1.881 ng/mL (< 0.028) H* 04/08/18 09:24 - Assessment/Plan 1. s/p NSTEMI 2. CAD s/p CABG x 4 Overall stable. Clear for discharge on ASA, bblocker and statin. F/U in 2-3 weeks.
== END 2018-04-18 15:36 | disposition home or self-care (01) | DRG 234 ==
LOC: ERS 19:55 → 2NO 22:46 → CCU 04-12 07:33 → 2NO 04-14 11:55
PROVIDERS: ADMIT Hospitalist; ATTEND Hospitalist
PROC: 4A023N7 Measurement of Cardiac Sampling and Pressure, Left Heart, Percutaneous Approach (ICD-10-PCS; 2018-04-10)
PROC: B2111ZZ Fluoroscopy of Multiple Coronary Arteries using Low Osmolar Contrast (ICD-10-PCS; 2018-04-10)
PROC: B2151ZZ Fluoroscopy of Left Heart using Low Osmolar Contrast (ICD-10-PCS; 2018-04-10)
PROC: 0213099 Bypass Coronary Artery, Four or More Arteries from Left Internal Mammary with Autologous Venous Tissue, Open Approach (ICD-10-PCS; principal; 2018-04-12)
DX: I21.4 Non-ST elevation (NSTEMI) myocardial infarction (principal); I69.954 Hemiplegia and hemiparesis following unspecified cerebrovascular disease affecting left non-dominant side; Z95.5 Presence of coronary angioplasty implant and graft; I25.2 Old myocardial infarction; I10 Essential (primary) hypertension; G56.20 Lesion of ulnar nerve, unspecified upper limb; Z87.891 Personal history of nicotine dependence; Z88.0 Allergy status to penicillin; Z79.899 Other long term (current) drug therapy; Z79.82 Long term (current) use of aspirin; E66.01 Morbid (severe) obesity due to excess calories; Z91.14 Patient's other noncompliance with medication regimen; I65.23 Occlusion and stenosis of bilateral carotid arteries; I73.9 Peripheral vascular disease, unspecified; E78.5 Hyperlipidemia, unspecified; I25.110 Atherosclerotic heart disease of native coronary artery with unstable angina pectoris; E11.65 Type 2 diabetes mellitus with hyperglycemia; Z68.33 Body mass index [BMI] 33.0-33.9, adult
CPT/HCPCS: 36415; 36416; 36430; 70498; 71045; 71046; 71250; 76942; 80048; 82805; 83036; 84484; 85025; 85610; 85730; 86850; 86900; 86901; 93005; 93010; 93458; 93798; 93880; 94002; 94150; 96374; 99152; A4216; C1760; C1769; J0583; J1265; J1642; J1644; J1650; J1815; J2001; J2150; J2250; J2270; J2370; J2405; J2440; J2704; J2720; J3010; J3370; J3475; J3480; J7050; P9045; P9047; S0017

== ENCOUNTER 2018-11-22 09:59 | Outpatient (CLI) | payer MEDICARE ==
[~2018-11-22 09:59] MED LIST: ISOVUE-370 76%-LOCM 1 ML ONE
--- NOTE | 2018-11-22 11:33 | CT ---
FCT angiogram neck: 11/22/2018 COMPARISON: 04/11/2018 HISTORY: Evaluate carotid arterial stenosis, prior carotid surgery TECHNIQUE: Axial CT imaging at 2 mm intervals from the skull base through the lung apices with IV con trast. Coronal and sagittal 3-D reformatted imaging obtained. FINDINGS: Midline sternotomy wires are present. Imaged lung apices demonstrate no acute findings. Imaged paranasal sinuses and mastoid air cells are unremarkable. The retroantral fat and the parapharyngeal fat appears clear bilaterally. The parotid glands and subm andibular glands are unremarkable. The tonsillar pillars, the epiglottis and preepiglottic fat, the hyoid bone, the thyroid cartilage, a nd the cricoid cartilage appear grossly unremarkable. No lymphadenopathy is noted within the neck. A bovine arch is noted. Origin of the left common carotid artery, left subclavian artery, right subclavian artery, and a righ t common carotid artery demonstrate no hemodynamically significant stenosis. There is new focal area of severe stenosis involving the distal aspect of the right common carotid ar harlan just proximal to the bifurcation, best seen on coronal image 54. In addition, there is severe st enosis at the origin of the right internal carotid artery and the right internal carotid artery from the level of the bifurcation through the axial level of the C1 vertebral body is hypoplastic, a new f inding when compared to the prior examination. In addition, the wall of the distal right CCA demonstr ates circumferential thickening in the area of new severe stenosis and there is also similar wall thi ckening of the proximal right internal carotid artery in a circumferential nature in the area of new severe stenosis. Findings are suspicious for dissection. The origin of the right vertebral artery appears unremarkable. The right vertebral artery appears sev erely stenotic distally at the axial level of the skull base. The right vertebral artery may end in P ICA. Left vertebral artery appears grossly unremarkable. There is calcified and noncalcified plaque at the origin of the left internal carotid artery. No hemo dynamically significant stenosis is seen involving the left common carotid artery. There is a focal a ray of stenosis involving the proximal left internal carotid artery, best seen on axial image 77 and coronal image 56, which is similar when compared to the prior examination and measures approximately 80-90% focally approximately 4 mm beyond the origin of the left internal carotid artery. Further dist ally, the left internal carotid artery appears unremarkable. Review of the osseous structures demonstrates no worrisome lytic or blastic bone lesion. IMPRESSION: New severe stenosis involving distal right CCA and proximal right ICA with circumferentia l wall thickening of the artery at these levels. Findings are concerning for underlying dissection. T he right internal carotid artery demonstrates new diffuse hypoplasia as well. Focal stable severe stenosis of proximal left ICA. Significant disease of right vertebral artery as above.
== END 2018-11-22 10:00 | disposition home or self-care (01) ==
LOC: BICCT 09:59
PROVIDERS: ATTEND Thoracic Surgery (Cardiothoracic Vascular Surgery)
DX: I65.23 Occlusion and stenosis of bilateral carotid arteries (principal)
CPT/HCPCS: 70498; 82565; Q9966

== ENCOUNTER 2018-12-05 01:43 | Outpatient (CLI) | payer MEDICARE ==
[2018-12-05 13:48] LABS: Mean Corpuscular HGB CONC 33.3 g/dL (32.0-36.0); Mean Corpuscular Volume 90.3 fL (78.0-98.0); Mean Platelet Volume 9.5 fL (7.4-10.4); Platelet Count 245 thou/uL (130-400); RBC Distribution Width 12.8 % (11.5-14.5); Red Blood Cell (RBC) Count 5.33 mill/uL (4.70-6.10); White Blood Cell (WBC) Count 11.4 thou/uL (4.8-10.8)
--- NOTE | 2018-12-05 13:49 | RAD ---
CHEST TWO VIEWS: HISTORY: Preop. COMPARISON: Two view exam from March 2018. FINDINGS: Evidence of a new nodular density in the left lung base, overlying the anterior left rib. The lungs are otherwise clear. No vascular congestion or effusion. Heart size is upper normal and s table. Postop sternotomy changes are seen. Degenerative spine changes appear stable. IMPRESSION: Question new nodularity density in the left lung base. Recommend short-term followup chest films. CODE T
[2018-12-05 14:25] LABS: Anion Gap 14 mmol/L (10-20); BUN (Urea Nitrogen) 20 mg/dL (8.4-25.7); Calc. Creatinine Clearance 0 mL/min (70-130); Calcium 9.7 mg/dL (7.8-10.44); Carbon Dioxide 22 mmol/L (23-31); Chloride 103 mmol/L (98-107); Estimated GFR-MDRD 68; Glucose 117 mg/dL (80-115); Potassium 4.4 mmol/L (3.5-5.1); Sodium 135 mmol/L (136-145)
== END 2018-12-05 01:44 | disposition home or self-care (01) ==
LOC: LABBT 01:43
PROVIDERS: ATTEND Thoracic Surgery (Cardiothoracic Vascular Surgery)
DX: Z01.818 Encounter for other preprocedural examination (principal); I65.29 Occlusion and stenosis of unspecified carotid artery
CPT/HCPCS: 71046; 80048; 85027; 93005; 93010

== ENCOUNTER 2018-12-05 13:15 | Inpatient (IN) | payer MEDICARE ==
[2018-12-06] MEDS ORDERED: Clindamycin/D5W 900 mg/50 ml Premix Bag ONE (06:17)
[2018-12-06] MEDS ORDERED: Protamine Sulfate 50 MG/5 ML VIAL ONE (06:33)
[2018-12-06] MEDS ORDERED: Heparin 5,000 UNITS/ML VIAL ONE (06:33)
[2018-12-06] MEDS ORDERED: Fentanyl 250 MCG/5 ML VIAL ONE (06:48)
[2018-12-06] MEDS ORDERED: Lidocaine 1% (PF) 30 ML VIAL ONE (06:53)
[2018-12-06] MEDS ORDERED: Midazolam HCl 2 mg/2 ml Vial ONE (07:01)
[2018-12-06] MEDS ORDERED: Ondansetron PF 4 MG/2 ML Vial IVP PRN (07:43)
[2018-12-06] MEDS ORDERED: Acetaminophen 325 MG TAB PO PRN (07:43)
[2018-12-06] MEDS ORDERED: Insulin Regular 300 UNITS/3 ML VIAL SC PRN (07:43)
[2018-12-06] MEDS ORDERED: HYDROcodone/Acetaminophen 5/325 mg Tablet PO PRN (07:43)
[2018-12-06] MEDS ORDERED: Norepinephrine 8 MG/0.9% NS 250 ML ONE (09:08)
[2018-12-06] MEDS ORDERED: Ondansetron HCl/PF 4 MG/2 ML Vial IVP PRN (10:45)
[2018-12-06] MEDS ORDERED: Promethazine HCl 25 MG/ML VIAL SLOW IVP PRN (10:45)
[2018-12-06] MEDS ORDERED: Promethazine HCl 25 MG/ML VIAL IM PRN (10:45)
[2018-12-06 11:08] VITALS: BMI 33.7
[2018-12-06] MEDS: Sodium Chloride 0.9% 1,000 ML IV SCH ×2 (12:21→22:21)
[2018-12-06] MEDS: Lisinopril 10 MG TAB PO SCH (12:35)
[2018-12-06] MEDS: Metoprolol Tartrate 50 MG TAB PO SCH ×2 (12:35→22:16)
[2018-12-06] MEDS ORDERED: Atorvastatin Calcium 20 MG TAB PO SCH (14:00)
[2018-12-06] MEDS ORDERED: ePHEDrine 50 MG/ML VIAL ONE (15:54)
[2018-12-06] MEDS ORDERED: Vecuronium 10 MG VIAL ONE (15:54)
[2018-12-06] MEDS ORDERED: PROPOFOL 200 MG/20 ML VIAL ONE (15:54)
[2018-12-06] MEDS ORDERED: PHENYLEPHRINE-NS 100 MCG/ML 10 ML SYRINGE ONE (15:54)
[2018-12-06] MEDS ORDERED: Ondansetron PF 4 MG/2 ML Vial ONE (15:54)
[2018-12-06] MEDS ORDERED: Glycopyrrolate 0.2 MG/ML 5 ML SYRINGE ONE (15:54)
[2018-12-06] MEDS ORDERED: Lidocaine 1% PF 5 ML VIAL ONE (15:54)
[2018-12-06] MEDS: HYDROcodone/Acetaminophen 5/325 mg Tablet PO PRN (22:16)
[2018-12-06] MEDS: Atorvastatin Calcium 20 MG TAB PO SCH (22:17)
[2018-12-07] MEDS: HYDROcodone/Acetaminophen 5/325 mg Tablet PO PRN (03:08)
[2018-12-07] MEDS: Sodium Chloride 0.9% 1,000 ML IV SCH (05:22)
--- NOTE | 2018-12-07 07:02 | DIS ---
DATE OF ADMISSION: 12/06/2018 DATE OF DISCHARGE: 12/07/2018 PRINCIPAL DIAGNOSIS: Recurrent right carotid stenosis. PROCEDURES PERFORMED: Redo right carotid endarterectomy with bovine pericardial patch angioplasty. HISTORY OF PRESENT ILLNESS AND HOSPITAL COURSE: The patient is a 63-year-old man who last summer underwent combined coronary artery bypass and right carotid endarterectomy. At that time, he was known to have significant left carotid stenosis, though not as bad as his right. The anticipation was that when he was adequately recovered from his original operation, he would undergo left carotid endarterectomy. His followup was somewhat delayed and carotid ultrasonography done to verify patency of his left carotid showed well patent, it seemed to have worsened, but more notably that his right carotid stenosis had recurred to a high degree. This was confirmed by CT angiography and he was admitted for a redo right carotid endarterectomy. He was found to have thick leathery plaque creating high-grade stenosis in the distal common carotid artery extending into the bulb and internal carotid. This was endarterectomized and the arteriotomy closed with a bovine pericardial patch. He had an uneventful overnight recovery in the intensive care unit and today on postoperative day 1, his blood pressures have been under good control. He is breathing and swallowing without difficulty. His wound has no significant bruising or swelling. His tongue is midline. His voice is normal and his tone is symmetric. He is able to move all extremities normally. He will be discharged home now. He is being given a prescription for Pilger as needed for pain and he is to resume his home medications that include Plavix. Job ID: [id number]
--- NOTE | 2018-12-07 07:11 | OP ---
DATE OF PROCEDURE: 12/06/2018 PROCEDURE PERFORMED: Redo right carotid endarterectomy with bovine pericardial patch angioplasty. PREOPERATIVE DIAGNOSIS: Recurrent right carotid stenosis. POSTOPERATIVE DIAGNOSIS: Recurrent right carotid stenosis. ANESTHESIA: General endotracheal anesthesia. INDICATIONS: The patient is a 63-year-old man who in last Summer underwent combined right carotid endarterectomy and coronary artery bypass grafting. At that time, he was noted to have a significant left carotid stenosis and followup ultrasonography to document its patency prior to endarterectomy, showed progression of disease not only on that side, but dramatic recurrence of stenosis on the operated side. This was confirmed by CT angiography. He is now taken to the operating room for redo right carotid endarterectomy. FINDINGS: Thick feathery plaque associated with a high-grade stenosis in the distal common carotid artery. Good ICA back bleeding. Pre shunt clamp time was 6 minutes. Shunt time was 49 minutes. Post shunt clamp time was 2 minutes. DESCRIPTION OF PROCEDURE: After informed consent was obtained, the patient was taken to the operating room, placed in supine position on the operating table. After the induction of general anesthesia, the patient's neck was extended and rotated toward the left. His right neck was then prepped and draped in sterile fashion. An oblique incision was made sharply through the previous endarterectomy scar in a skin crease of the neck. The incision was carried through the subcutaneous tissue and platysma with the electrocautery. Sharp dissection was used to expose the common carotid artery medial to the internal jugular vein. The common carotid was dissected free from its sheath and the vagus nerve and looped with a vessel loop. Sharp dissection was used to expose the carotid up beyond the level of the hypoglossal nerve and digastric muscle. The external carotid artery was extensively mobilized to allow for medial retraction of it to facilitate exposure of internal carotid artery that was encased with scar. The external carotid system was looped with a vessel loop to facilitate that medial retraction. The internal carotid artery was then isolated and the patient was heparinized. After adequate circulation time of heparin, the internal carotid, common carotid, and external carotid systems were sequentially occluded. An 11 blade scalpel was used to make a longitudinal arteriotomy in the common carotid artery, which was then extended proximally and distally with Krishna scissors. The tips of the Krishna scissors and an elevator were used to develop an endarterectomy plane at the level of the bulb, plaque was transected at the common carotid level, everted from the external carotid system and then broken off distally in the internal carotid. The endarterectomy bed was forcefully irrigated, paying particular attention to the distal feather, which required a minimal amount of tailoring into the proximal transection point, which required sharp debridement. An intraluminal carotid shunt was inserted first distally in the internal carotid and proximally in the common carotid, aspirating on the side port of the shunt before allowing antegrade flow through it into the internal carotid system. The endarterectomy bed was then forcefully irrigated, inspected, and debrided. A bovine pericardial patch was then used to close the arteriotomy starting at the distal apex, reaching the proximal apex on the common carotid could be appreciated that the endarterectomy plane went fairly deep at the transection point and this was tacked to obliterate what amounted to a gouge with longitudinally oriented interrupted Prolene sutures. The suture line on the patch was continued until there was only about a half a centimeter remaining. The shunt was then clamped and removed with proximal and distal control being re-established on the common carotid and the origin of the internal carotid using vessel loops. The remaining suture line was completed. The vessels were forward and back bled for flushing of any air or residual debris out the arteriotomy or into the external carotid system. Suture line was secured and antegrade flow was allowed first into the external carotid and then into the internal carotid. The suture line was inspected for gross hemostasis. One bleeding point on the suture line was easily controlled with a [id number] Prolene suture. Another point on the anastomosis that appeared to have potential for bleeding was oversewn as well. The wound was packed off and the heparin was reversed with protamine. The packing was removed and the wound reinspected and irrigated with adequate hemostasis. The wound was then closed. The platysma was reapproximated with 3-0 Vicryl. The skin was closed with a running 4-0 Vicryl subcuticular suture and Steri-Strips. The wound was dressed. The patient is awakened and extubated in the operating room, taken to the recovery area in good condition. Job ID: [id number]
[2018-12-07] MEDS: Metoprolol Tartrate 50 MG TAB PO SCH (08:08)
[2018-12-07] MEDS: Atorvastatin Calcium 20 MG TAB PO SCH (08:08)
[2018-12-07] MEDS: Lisinopril 10 MG TAB PO SCH (08:08)
[2018-12-07 08:09] VITALS: BP 153/78
[2018-12-07 08:18] VITALS: TEMP 97.6
== END 2018-12-07 10:17 | disposition home or self-care (01) | DRG 39 ==
LOC: SURG A 12-06 05:44 → CCU 12-06 11:58
PROVIDERS: ADMIT Thoracic Surgery (Cardiothoracic Vascular Surgery); ATTEND Thoracic Surgery (Cardiothoracic Vascular Surgery)
PROC: 03CM0ZZ Extirpation of Matter from Right External Carotid Artery, Open Approach (ICD-10-PCS; principal; 2018-12-06)
PROC: 03CK0ZZ Extirpation of Matter from Right Internal Carotid Artery, Open Approach (ICD-10-PCS; 2018-12-06)
PROC: 03UM0JZ Supplement Right External Carotid Artery with Synthetic Substitute, Open Approach (ICD-10-PCS; 2018-12-06)
PROC: 03UK0JZ Supplement Right Internal Carotid Artery with Synthetic Substitute, Open Approach (ICD-10-PCS; 2018-12-06)
DX: I65.21 Occlusion and stenosis of right carotid artery (principal); I25.10 Atherosclerotic heart disease of native coronary artery without angina pectoris; I69.322 Dysarthria following cerebral infarction; E11.9 Type 2 diabetes mellitus without complications; Z79.4 Long term (current) use of insulin; I25.2 Old myocardial infarction; Z87.891 Personal history of nicotine dependence; Z95.1 Presence of aortocoronary bypass graft
CPT/HCPCS: 36416; 71046; 80048; 85027; 93005; 93010; 94640; J1642; J1644; J2001; J2250; J2405; J2704; J2720; J3010; J3490; J7620

== ENCOUNTER 2019-01-12 16:02 | Inpatient (IN) | payer MEDICARE ==
[2019-02-12] MEDS ORDERED: PHENYLEPHRINE-NS 100 MCG/ML 10 ML SYRINGE ONE (10:34)
[2019-02-12] MEDS ORDERED: Vecuronium 10 MG VIAL ONE (10:34)
[2019-02-12] MEDS ORDERED: PROPOFOL 200 MG/20 ML VIAL ONE (10:34)
[2019-02-12] MEDS ORDERED: Glycopyrrolate 0.2 MG/ML 5 ML SYRINGE ONE (10:34)
[2019-02-12] MEDS ORDERED: Heparin 10,000 UNITS/ 10 ML VIAL ONE (10:34)
[2019-02-12] MEDS ORDERED: Lidocaine 1% PF 5 ML VIAL ONE (10:34)
[2019-02-12] MEDS ORDERED: Ketorolac Tromethamine 30 MG/ML VIAL ONE (10:34)
[2019-02-12] MEDS ORDERED: Ondansetron PF 4 MG/2 ML Vial ONE (10:34)
[2019-02-12] MEDS ORDERED: Dexamethasone 20 MG/5 ML VIAL ONE (10:34)
[2019-02-12] MEDS ORDERED: Clindamycin/D5W 900 mg/50 ml Premix Bag ONE (11:10)
[2019-02-12] MEDS ORDERED: Heparin 5,000 UNITS/ML VIAL ONE (12:03)
[2019-02-12] MEDS ORDERED: Protamine Sulfate 50 MG/5 ML VIAL ONE (12:03)
[2019-02-12] MEDS ORDERED: Fentanyl 100 MCG/2 ML VIAL ONE (12:26)
[2019-02-12] MEDS ORDERED: Midazolam HCl 2 mg/2 ml Vial ONE (12:26)
[2019-02-12] MEDS ORDERED: Acetaminophen 325 MG TAB PO PRN (12:51)
[2019-02-12] MEDS ORDERED: HYDROcodone/Acetaminophen 5/325 mg Tablet PO PRN ×2 (12:51)
[2019-02-12] MEDS ORDERED: Insulin Regular 300 UNITS/3 ML VIAL SC PRN (12:51)
[2019-02-12] MEDS ORDERED: Ondansetron PF 4 MG/2 ML Vial IVP PRN (12:51)
[2019-02-12] MEDS ORDERED: hydrALAZINE 20 MG/ML VIAL SLOW IVP PRN (12:51)
--- NOTE | 2019-02-12 16:21 | OP ---
DATE OF PROCEDURE: 02/12/2019 PROCEDURE PERFORMED: Left carotid endarterectomy with bovine pericardial patch angioplasty. PREOPERATIVE DIAGNOSIS: Left carotid stenosis. POSTOPERATIVE DIAGNOSIS: Left carotid stenosis. ANESTHESIA: General endotracheal anesthesia. INDICATIONS: The patient is a 63-year-old man, found to have bilateral carotid stenoses, right worse than left, during his preoperative evaluation for coronary artery bypass grafting. He underwent right carotid endarterectomy in conjunction with his coronary artery bypass procedure about a year ago, but in early followup, he was found to have had a very high-grade recurrence of stenosis in the right carotid system as well as significant progression of disease on the left. He has undergone redo right carotid endarterectomy with patch angioplasty and is adequately recovered from that procedure and now presents for left carotid endarterectomy. FINDINGS: Calcified eccentric plaque at the origin of the left internal carotid artery. Good ICA back bleeding. Pre-shunt clamp time was 7 minutes, shunt time was 24 minutes, post shunt clamp time was 4 minutes. NARRATIVE REPORT: After informed consent was obtained, the patient was taken to the operating room and placed in supine position on the operating table. After the induction of general anesthesia, the patient's neck was extended and rotated towards the right. His left neck was then prepped and draped in sterile fashion. An oblique incision was made in a skin crease on the left neck using a scalpel and electrocautery. The dissection was carried through the subcutaneous tissue and platysma and then anteromedial to the sternocleidomastoid muscle and the internal jugular vein. The facial vein was ligated and divided. The common carotid artery was dissected free from the sheath and the vagus nerve and looped with a vessel loop. The dissection was carried distally beyond the level of the digastric muscle and hypoglossal nerve, dividing the ansa cervicalis and ligating and dividing the sling vessels to allow for adequate exposure of the internal carotid artery distally. The vagus was dissected free from the carotid system. The external carotid system was looped in mass with a vessel loop. After adequate circulation time of heparin, the internal carotid, common carotid, and external carotid systems were sequentially occluded. A longitudinal arteriotomy was made in the distal common carotid artery and extended proximally and distally with Krishna scissors. An endarterectomy plane was developed to the level of the bulb with the tip of the Krishna scissors and then extended with an elevator. Plaque was transected at the common carotid level with scissors and everted from the external carotid system that was broken off distally in the internal carotid, that distal feather required tailoring. The endarterectomy bed was then forcefully irrigated, paying particular attention to the distal feather and the proximal transection points. An intraluminal carotid shunt was inserted 1st distally in the internal carotid and then proximally in the common carotid, aspirating on the side port of the shunt before allowing antegrade flow through it into the internal carotid system. The endarterectomy bed was then serially irrigated, inspected, and debrided until no more mobile debris remained. A bovine pericardial patch was then used to close the arteriotomy with running 5-0 Prolene suture with about a 0.5 cm of arteriotomy of the suture line left to complete. At the common carotid level, the shunt was clamped and removed and vascular control on the origin of the internal carotid and on the common carotid, it was re-established with vessel loops. The remaining suture line was sewn. The vessels have forward and back bled to allow for flushing of any air or residual debris out the arteriotomy or into the external carotid system. The suture line was secured and antegrade flow was allowed 1st in the external carotid and then into the internal carotid. Because of the extensive oozing along one part of the common carotid suture line, it was opted to reverse the heparin with protamine. The wound was packed off with gauze while protamine was being administered. After several minutes, the packing was removed and the wound inspected. When hemostasis was adequate, the platysma was reapproximated with running 3-0 Vicryl and the skin was closed with a running 4-0 Vicryl subcuticular suture and Steri-Strips. The wound was dressed. The patient was awakened and extubated in the operating room and taken to the recovery area in good condition. Job ID: [id number]
[2019-02-12 17:08] VITALS: BMI 34.4
[2019-02-12] MEDS: Sodium Chloride 0.9% 1,000 ML IV SCH ×2 (17:58→22:10)
[2019-02-12] MEDS ORDERED: Atorvastatin Calcium 40 MG TAB PO SCH (21:00)
[2019-02-12] MEDS: Metoprolol Tartrate 50 MG TAB PO SCH (22:11)
[2019-02-13 08:45] VITALS: BP 100/60
[2019-02-13] MEDS: Metoprolol Tartrate 50 MG TAB PO SCH (08:45)
[2019-02-13] MEDS: Sodium Chloride 0.9% 1,000 ML IV SCH (08:45)
[2019-02-13] MEDS ORDERED: Clopidogrel Bisulfate 75 MG TAB PO SCH ×2 (09:00)
[2019-02-13] MEDS ORDERED: Lisinopril 10 MG TAB PO SCH (09:00)
[2019-02-13] MEDS ORDERED: Aspirin Chewable 81 MG TAB PO SCH (09:00)
[2019-02-13 12:30] VITALS: TEMP 97.6
--- NOTE | 2019-02-13 17:45 | DIS ---
DATE OF ADMISSION: 02/12/2019 DATE OF DISCHARGE: 02/13/2019 PRINCIPAL DIAGNOSIS: Left carotid stenosis. PROCEDURE PERFORMED: Left carotid endarterectomy. HISTORY OF PRESENT ILLNESS: The patient is a 63-year-old diabetic man with coronary artery disease and cerebrovascular disease. He had early recurrence of stenosis of his endarterectomized right carotid foot as well as progression of disease in his left. He has recovered from a redo right carotid endarterectomy and was admitted for left carotid endarterectomy. This was done using a bovine pericardial patch angioplasty technique and he had an uncomplicated overnight stay in the intensive care unit. Today on postoperative day 1, his blood pressure is under good control. His tongue is midline. His voice is normal. He is breathing and swallowing without difficulty. His wound has no significant swelling. He is able to move all extremities. PLAN: He is to resume all of his home medications, which include aspirin and Plavix. I will plan on seeing him in the office in about 2 or 3 weeks. Job ID: [id number]
== END 2019-02-13 14:39 | disposition home or self-care (01) | DRG 38 ==
LOC: SURG A 02-12 10:16 → CCU 02-12 17:04
PROVIDERS: ADMIT Thoracic Surgery (Cardiothoracic Vascular Surgery); ATTEND Thoracic Surgery (Cardiothoracic Vascular Surgery)
PROC: 03CJ0ZZ Extirpation of Matter from Left Common Carotid Artery, Open Approach (ICD-10-PCS; principal; 2019-02-12)
PROC: 03UJ0KZ Supplement Left Common Carotid Artery with Nonautologous Tissue Substitute, Open Approach (ICD-10-PCS; 2019-02-12)
DX: I65.22 Occlusion and stenosis of left carotid artery (principal); I69.354 Hemiplegia and hemiparesis following cerebral infarction affecting left non-dominant side; I25.10 Atherosclerotic heart disease of native coronary artery without angina pectoris; E11.51 Type 2 diabetes mellitus with diabetic peripheral angiopathy without gangrene; E78.5 Hyperlipidemia, unspecified; E66.9 Obesity, unspecified; I25.2 Old myocardial infarction; Z87.891 Personal history of nicotine dependence; Z79.84 Long term (current) use of oral hypoglycemic drugs; Z95.1 Presence of aortocoronary bypass graft; Z88.0 Allergy status to penicillin; Z68.34 Body mass index [BMI] 34.0-34.9, adult
CPT/HCPCS: 36416; 71046; 80048; 85027; 93005; 93010; 94640; J1100; J1642; J1644; J1885; J2001; J2250; J2405; J2704; J2720; J3010; J3490; J7620

== ENCOUNTER 2019-02-09 02:53 | Outpatient (CLI) | payer MEDICARE ==
--- NOTE | 2019-02-09 10:41 | RAD ---
CHEST 2 VIEWS: HISTORY: Preoperative evaluation. COMPARISON: 12/05/2018. FINDINGS: Heart size is within normal limits. Postop midline sternotomy. No confluent pneumonia, overt edema, or other acute process. IMPRESSION: No acute intrathoracic disease. Postop midline sternotomy. POS: [facility]
[2019-02-09 11:17] LABS: Hemoglobin 15.2 g/dL (14.0-18.0); Mean Corpuscular HGB CONC 33.2 g/dL (32.0-36.0); Mean Corpuscular Hemoglobin 30.2 pg (27.0-31.0); Mean Corpuscular Volume 90.8 fL (78.0-98.0); Mean Platelet Volume 9.6 fL (7.4-10.4); Platelet Count 215 thou/uL (130-400); RBC Distribution Width 12.3 % (11.5-14.5); Red Blood Cell (RBC) Count 5.04 mill/uL (4.70-6.10); White Blood Cell (WBC) Count 11.1 thou/uL (4.8-10.8)
[2019-02-09 11:34] LABS: Anion Gap 15 mmol/L (10-20); BUN (Urea Nitrogen) 13 mg/dL (8.4-25.7); Calc. Creatinine Clearance 0 mL/min (70-130); Calcium 9.3 mg/dL (7.8-10.44); Carbon Dioxide 23 mmol/L (23-31); Chloride 102 mmol/L (98-107); Estimated GFR-MDRD 67; Glucose 140 mg/dL (80-115); Potassium 4.6 mmol/L (3.5-5.1); Sodium 135 mmol/L (136-145)
== END 2019-02-09 02:54 | disposition home or self-care (01) ==
LOC: LABBT 02:53
PROVIDERS: ATTEND Thoracic Surgery (Cardiothoracic Vascular Surgery)
DX: Z01.818 Encounter for other preprocedural examination (principal); I65.29 Occlusion and stenosis of unspecified carotid artery
CPT/HCPCS: 71046; 80048; 85027; 93005; 93010